=== PATIENT | male | born 1985 | race Caucasian/White ===

== ENCOUNTER 2021-08-07 12:43 | Observation (INO) | payer BC, SELFPAY ==
[2021-08-07] VITALS (23 sets, daily range): BP systolic 117–168; BP diastolic 70–117; PULSE 68–110; RESP 10–17; TEMP 35.9–36.8; O2SAT 92–99; BMI 25.9; BMI 26.4
[2021-08-07] MEDS: Lactated Ringers 1,000 ML 100 ML IV (06:46)
[2021-08-07 07:34] LABS: Hematocrit 46.8 % (40-54); Hemoglobin 16.2 g/dL (13.0-16.5); Mean Corp Hgb Conc 34.6 g/dL (32-36); Mean Corpuscular Volume 83.7 fL (80-94); Mean Platelet Vol. 9.6 fl (6.2-12.0); Platelet Count 188 K/mm3 (150-450); RBC Distribution Width CV 12.5 % (11.6-14.6); RBC Distribution Width SD 38.5 fl (35.1-43.9); Red Blood Count 5.59 M/mm3 (4.6-6.2); White Blood Count 8.4 K/mm3 (4.4-11.0)
[2021-08-07] MEDS: Lactated Ringers 1,000 ML 15 ML IV (08:55)
[2021-08-07] MEDS: Lidocaine 1%/Epi 1:200 (30ml) 30 ML AMPUL (09:50)
[2021-08-07] MEDS: Bupivacaine Mpf 0.5% 30 ML VIAL (09:50)
[2021-08-07] MEDS: MethylPREDNISolone 125 MG/2 ML Vial IV ×3 (14:31→23:47)
[2021-08-07] MEDS: Ketorolac 30 MG/ML Syringe IV ×2 (14:35→20:42)
[2021-08-07] MEDS: Dextrose 5%-Lactated Ringers 1,000 ML 100 ML IV (16:32)
[2021-08-07] MEDS: Morphine 2 MG/ML Syringe IV (21:41)
[2021-08-08] VITALS (8 sets, daily range): BP systolic 102–122; BP diastolic 62–86; PULSE 72–114; RESP 12–16; TEMP 36.4–37.1; O2SAT 93–96
[2021-08-08] MEDS: Ketorolac 30 MG/ML Syringe IV (02:44)
[2021-08-08] MEDS: Dextrose 5%-Lactated Ringers 1,000 ML 100 ML IV (02:44)
[2021-08-08] MEDS: Morphine 2 MG/ML Syringe IV ×2 (03:42→07:21)
[2021-08-08] MEDS: MethylPREDNISolone Acetate 80 MG/ML Vial IM (06:15)
[2021-08-08] MEDS: MethylPREDNISolone 125 MG/2 ML Vial IV (06:17)
--- NOTE | 2021-08-08 07:40 | PCM.PN.BLA ---
Progress Note Patient seen resting well and minimal pain. Swelling is normal post op day 1. Incisions are intact without any active bleeding. Neurosensory function is intact. All motor nerves of face intact. Discharge planned for this afternoon. Will push more oral intake and pain medications.
[2021-08-08] MEDS: HYDROcodone Bitartrate/Apap 5/325 Tablet PO (11:21)
--- NOTE | 2021-08-08 12:05 | PCM.DC ---
Discharge Instructions Diet Discharge Diet: Light diet - advance as tolerated Activity Discharge Activity: May Drive, May Shower and May Take a Tub Bath Return to work on:: 08/29/21 May shower in (days): 1 Weight Bearing Status: Partial weight bearing Dressing / Incision Call your doctor if your incision/area has: Continuous Slow Oozing, Sudden Increased Bleeding, Increased Pain/ Swelling, Increased Redness, Foul Smelling Discharge and Swelling at the incision site Call your doctor if you observe: Fever of 101 or Higher Suture Line Care: Avoid Pulling/Pushing Follow Up Care Test Results: Test results from this visit will be discussed in further detail at your follow-up appointment, if applicable. Discharge Plan Admission Admit Date/Time: 08/07/21 12:43 Attending Provider: Apollo Hernandez Primary Care Provider: Daniel Avilez Instructions Patient Instructions: Jaw Orthognathic Surgery ... Discharge Orders/Prescriptions Prescriptions: Continued lisinopril 10 mg Tablet 10 mg PO DAILY RF: 0 multivitamin Capsule 1 cap PO DAILY RF: 0 Referrals / Follow Up: Daniel Avilez MD [Primary Care Provider] - Apollo Hernandez DDS [STAFF PHYSICIAN] - In 1 Week Disposition Disposition (needs filled in before D/C Order can be placed): Home, Self Care
--- NOTE | 2021-08-08 12:43 | OP.PCM_ITS ---
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 The potential risks and complications of the procedure were discussed at length with the patient and his mother. These included but were not limited to swelling, pain, hemorrhage, infection, nonunion, malunion, need for secondary procedures, neurosensory problems, relapse and continue TMJ symptomatology. The patient understands and wishes to proceed. The patient was placed on the operating room table in the supine position. Appropriate monitors were placed. He was intubated via the naso-endotracheal route without complications. Anesthesia was uneventful. The face and mouth prepped with dilute betadine solution. 10 cc marcaine. .25% infiltrated along the left mandibular ramus region. A mouth prop was inserted into the right side. A throat pack was placed. A soft tissue incision was made with a #15 blade over the external oblique ridge midway uop the anterior border of the ramus of the mandible into the vestibule lateral to the body of the mandible. At this point, a subpeiosteal reflection of the tissue lateral to the ramus was performed to the posterior border and inferior border of the mandible. Also superiorly the dissection was carried into the sigmoid notch. Complete removal of the temporalis tendon was performed to increase visualization of the notch area. A periosteal elevator was used to remove the pterygoid-masseteric sling and as much as possible of the medial pterygoid muscle attachment. Utilizing special ramus retractors, these were inserted to protect the overlying soft tissues. Using the reciprocating saw and the 120 degree blade the philip osteotomy was made from the sigmoid notch superiorly, and carried inferiorly to the mandibular angle. After this was completed the surgical site was packed off and then our attention was directed to the right side where the same procedure was performed. At this time the pre made occlusal splint was wired to the maxi lla and mandible with 26 gauge wire and arch bars were placed as well. The throat pack was removed and throat suctioned. At this time the patient was placed into intermaxillary fixation with 26 gauge wire loops. It was noted that the bilateral proximal segments were passively resting lateral to the distal segments. Copious amounts of normal saline was used to irrigate the surgical sites and were closed with 3-0 chromic sutures in a running fashion. A Lweis head dressing was applied. The patient was extubated without event. The procedure went well with no known complications and the patient was transferred to the PACU breathing spontaneously
--- NOTE | 2021-08-08 13:04 | NURSING ---
Reviewed and agree w/ Latonya Cornelius SN documentation
== END 2021-08-08 13:00 | disposition home or self-care (01) ==
LOC: MS3 14:04 → SDC 14:06 → MS3 14:06 → ICU 08-08 09:17
PROVIDERS: Admitting Provider Dentist Oral and Maxillofacial Surgery; PCP Family Medicine; Referring Provider Dentist Oral and Maxillofacial Surgery; Visit Provider Dentist Oral and Maxillofacial Surgery
PROC: (CPT 21196; principal; 2021-08-07 14:00)
DX: M26.03 Mandibular hyperplasia (principal); I10 Essential (primary) hypertension; K00.0 Anodontia; M26.19 Other specified anomalies of jaw-cranial base relationship; M26.609 Unspecified temporomandibular joint disorder, unspecified side; Z79.899 Other long term (current) drug therapy; Z86.16 Personal history of COVID-19
CPT/HCPCS: 21196; 85027; 96361; 96365; 96366; 96372; 96375; 96376; 99218; J7120; G0378; J2405

== ENCOUNTER 2025-05-17 19:51 | Emergency (ER) | payer BC, SELFPAY ==
[2025-05-17 19:53] VITALS: BP 139/95; PULSE 86; RESP 17; TEMP 36.6; O2SAT 98; BMI 26.4
--- NOTE | 2025-05-17 20:00 | EKG12_ITS ---
Test Reason : DYSRHYTHMIA Blood Pressure : */* mmHG Vent. Rate : 86 BPM Atrial Rate : 86 BPM P-R Int : 168 ms QRS Dur : 92 ms QT Int : 368 ms P-R-T Axes : 58 63 34 degrees QTcB Int : 440 ms Normal sinus rhythm Normal ECG Confirmed by Shar Ferris ([id number]), social media editor YUKO GALE ([id number]) on 05/18/2025 11:47:00 AM Referred By: Confirmed By: Shar Ferris
[2025-05-17] MEDS: 0.9% Normal Saline (1000mL) 1,000 ML 1000 ML IV (20:20)
--- OUTSIDE RECORDS SUMMARY | 2025-05-17 20:32 | XMS RPT_ITS | CCD ---
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 serum creatinine, sex, and age as parameters. The creatinine assay has traceable calibration to isotope dilution-mass spectrometry. Refer to KDIGO guidelines for clinical interpretation. In patients with unstable renal function, e.g. those with acute kidney injury, the eGFR may not accurately reflect actual GFR. Performed By: #### L ALFONSO, 32267-0 #### [facility] CLIA [id number] [address] [place] [address] [place] Glucose [Mass/Vol] 90 mg/dL Normal 74-99 [facility] Comment on above: Order Comment: Speci men Type: BLOOD SPECIMEN Ordering Facility: [facility] Address: [address] [place] [address] Result Comment: The [place] Diabetes Association (ADA) provides guidance for cutoff values for fasting glucose and random glucose. The ADA defines fasting as no caloric intake for at least 8 hours. Fasting plasma glucose results between 100 to 125 mg/dL indicate increased risk for diabetes (prediabetes). Fasting plasma glucose results greater than or equal to 126 mg/dL meet the criteria for diagnosis of diabetes. In the absence of unequivocal hyperglycemia, results should be confirmed by repeat testing. In a patient with classic symptoms of hyperglycemia or hyperglycemic crisis, random plasma glucose results greater than or equal to 200 mg/dL meet the criteria for diagnosis of diabetes. Reference: Standards of Medical Care in Diabetes 2016, [place] Diabetes Association. Diabetes Care. 2016.39(Suppl 1). Performed By: #### L IPVANGIE, 24748-3 #### [facility] CLIA [id number] [address] [place] [address] [place] Potassium [Moles/Vol] 4.4 mmol/L Normal 3.7-5.1 [facility] Comment on above: Order Comment: Speci men Type: BLOOD SPECIMEN Ordering Facility: [facility] Address: [address] [place] [address] Performed By: #### L IPVANGIE, 05110-7 #### [facility] CLIA [id number] [address] [place] [address] [place] Protein [Mass/Vol] 7.5 g/dL Normal 6.3-8.0 [facility] Comment on above: Order Comment: Master gallego Type: BLOOD SPECIMEN Ordering Facility: [facility] Address: [address] [place] [address] Performed By: #### L IPNF, 48196-9 #### [facility] CLIA [id number] [address] [place] [address] [place] Sodium [Moles/Vol] 138 mmol/L Normal 136-144 [facility] Comment on above: Order Comment: Eloisai men Type: BLOOD SPECIMEN Ordering Facility: [facility] Address: [address] [place] [address] Performed By: #### L IPNF, 60864-7 #### [facility] CLIA [id number] [address] [place] [id number] [place] Urea nitrogen [Mass/Vol] 20 mg/dL Normal 9-24 [facility] Comment on above: Order Comment: Master gallego Type: BLOOD SPECIMEN Ordering Facility: [facility] Address: [address] [place] [address] Performed By: #### L IPNF, 10404-1 #### [facility] CLIA [id number] [address] [place] [address] [place] HbA1c (Bld)on 02-04-2025 Average glucose Estimated from glycated hemoglobin (Bld) [Mass/Vol] 105 mg/dL Normal [facility] Comment on above: Order Comment: Master gallego Type: BLOOD SPECIMEN Ordering Facility: [facility] Address: [address] [place] [address] Result Comment: eAG: (Estimated average glucose) is a calculated value from HgbA1c and is automotive leasing sales representative of the average blood glucose level in the last 2-3 month period. Performed By: #### 5 5454-3 #### [facility] CLIA [id number] [address] [place] [address] [place] HbA1c (Bld) [Mass fraction] 5.3 % Normal 4.3-5.6 [facility] Comment on above: Order Comment: Master gallego Type: BLOOD SPECIMEN Ordering Facility: [facility] Address: [address] [place] [address] Result Comment: [place] Diabetes Association guidelines indicate that patients with HgbA1c in the range 5.7-6.4% are at increased risk for development of diabetes, and intervention by lifestyle modification may be beneficial. HgbA1c greater or equal to 6.5% is considered diagnostic of diabetes. Performed By: #### 5 5454-3 #### [facility] CLIA [id number] [address] [place] [address] [place] LIPID PANEL, NONFASTINGon Cholesterol [Mass/Vol] 192 mg/dL Normal <200 [facility] Comment on above: Order Comment: Speci men Type: BLOOD SPECIMEN Ordering Facility: [facility] Address: [address] [place] [address] Result Comment: <200 mg/dL, Desirable 200-239 mg/dL, Borderline high >239 mg/dL, High Performed By: #### L IPNF, 36532-1 #### [facility] CLIA [id number] [address] [place] [address] [place] HDL CHOLESTEROL, NF 40 mg/dL Normal >39 [facility] Comment on above: Order Comment: Speci men Type: BLOOD SPECIMEN Ordering Facility: [facility] Address: [address] [place] [address] Result Comment: 40-5 9 mg/dL, Acceptable >59 mg/dL, High: Negative risk factor for coronary heart disease <40 mg/dL, Low: Positive risk factor for coronary heart disease Performed By: #### L IPNF, #### [facility] CLIA [id number] [address] [place] [address] [place] LDL CHOLESTEROL CALCULATED, NF 113 mg/dL High <100 [facility] Comment on above: Order Comment: Eloisai men Type: BLOOD SPECIMEN Ordering Facility: [facility] Address: [address] [place] [address] Result Comment: <100 mg/dL, Optimal 100-129 mg/dL, Near optimal/above optimal 130-159 mg/dL, Borderline high 160-189 mg/dL, High >189 mg/dL, Very high Secondary prevention optimal LDL Cholesterol levels are recommended to be <70 mg/dL LDL cholesterol is calculated using the Sorto-NIH equation. Performed By: #### L IPNF, 46802-1 #### [facility] CLIA [id number] [address] [place] [address] [place] LDL/HDL RATIO, NF 2.83 mg/dL High <2.54 [facility] Comment on above: Order Comment: Speci men Type: BLOOD SPECIMEN Ordering Facility: [facility] Address: [address] [place] [address] Result Comment: Refe rence: 1. National Cholesterol Education Program ATP III Guideline At-A-Glance Quick Desk Reference: National Heart, Lung, and Blood Howard. National Institutes of Health. 2001: NIH Publication No. 01-3305. 2. An International Atherosclerosis Society position paper: global recommendations for the management of dyslipidemia: executive summary, Atherosclerosis. 2014: 232(2):410-413. Performed By: #### L IPNF, 42420-7 #### [facility] CLIA [id number] [address] [place] [address] [place] NON HDL CHOL, NF 152 mg/dL High <130 [facility] Comment on above: Order Comment: Master gallego Type: BLOOD SPECIMEN Ordering Facility: [facility] Address: [address] [place] [address] Result Comment: <130 mg/dL, Optimal 130-159 mg/dL, Near optimal/above optimal 160-189 mg/dL, Borderline high 190-219 mg/dL, High >219 mg/dL, Very high Secondary prevention optimal non HDL Cholesterol levels are recommended to be <100 mg/dL Performed By: #### L IPNF, 99150-0 #### [facility] CLIA [id number] [address] [place] [address] [place] T CHOL/HDL RATIO NF 4.80 mg/dL Normal <5.10 [facility] Comment on above: Order Comment: Master gallego Type: BLOOD SPECIMEN Ordering Facility: [facility] Address: [address] [place] [address] Performed By: #### L IPNF, 06073-1 #### [facility] CLIA [id number] [address] [place] [address] [place] TRIGLYCERIDES, NF 223 mg/dL High <150 [facility] Comment on above: Order Comment: Master gallego Type: BLOOD SPECIMEN Ordering Facility: [facility] Address: [address] [place] [address] Result Comment: <150 mg/dL, Normal 150-199 mg/dL, Borderline high 200-499 mg/dL, High >499 mg/dL, Very high Performed By: #### L IPNF, 37951-6 #### [facility] CLIA [id number] [address] [place] [address] STATES [place] [facility] VLDL CHOLESTEROL, NF 38 mg/dL High <30 [facility] Comment on above: Order Comment: Speci men Type: BLOOD SPECIMEN Ordering Facility: [facility] Address: [address] [place] [address] Performed By: #### L IPNF, 46833-8 #### [facility] CLIA [id number] [address] [place] [address] OF [facility] XR LUMBAR PARS 4V AP/LAT/OBL X2on 02-04-2025 XR LUMBAR PARS 4V AP/LAT/OBL X2 * * *Final Report* * * DATE OF EXAM: Feb 04 2025 12:36PM WOX [id number] - XR LUMBAR PARS 4V AP/LAT/OBL X2 / PROCEDURE REASON: Acute midline low back pain without sciatica * * * * Physician Interpretation * * * * EXAM TITLE: XR LUMBAR PARS 4V AP/LAT/OBL X2 EXAM DATE/TIME: 02/04/2025 12:36 PM COMPARISON: None. CLINICAL INDICATION/HISTORY: Low back pain. TECHNIQUE: AP, lateral , oblique and cone down lateral views of the lumbar spine are presented. FINDINGS: There are five [id number] lumbar vertebrae. No fracture or subluxations are noted. The disc spaces are well preserved. There is no significant osteophyte formation. IMPRESSION: Negative lumbar spine X-ray. Block Hacker: PSCB Transcribe Date/Time: Feb 05 2025 12:01P Dictated by : TERRANCE DANG MD This examination was interpreted and the report reviewed and electronically signed by: TERRANCE DANG MD on Feb 05 2025 12:02PM EST [id number] Normal [facility] ED NOTEon 01-11-2022 ED NOTE HNO ID: [id number] Author: Jatinder Kingston RN Service: ? Author Type: Registered Nurse Type: ED Notes Filed: 01/11/2022 4:30 PM Note Text: Pt reports being next to a high pressure hot hydraulic line that burst throwing hot fluid all over his head, neck, face and L arm. [facility] ED PROV NOTEon 01-11-2022 ED PROV NOTE HNO ID: [id number] Author: Mitchell Quigley MD Service: ? Author Type: Physician Type: ED Provider Notes Filed: 01/11/2022 7:45 PM Note Text: ED Provider Note Patient Name: Severino Resendiz : 1985 SERVICE DATE: 01/11/22 History Patient presents with: Minor This is a 36-year-old male, previously healthy presents with minor sustained at work. These were substernal around 3 PM. He was working with a piece of heavy machinery, involving hydraulic fluid when a hydraulic fluid line burst and squirted hot hydraulic fluid onto his left arm, left neck left face and left ear. He is unsure of his last tetanus shot. Denies any numbness, tingling, weakness, difficulty breathing or swallowing. Thinks that he did get a little bit in his mouth but spit it out does not taste anymore. Denies getting any in his eye. Reports that he was wearing sunglasses at the time. PAST MEDICAL HISTORY Diagnosis Date - Hypertension - PMH - PAST MEDICAL HISTORY OF 01/02/93 NORMAL COLOR VISION - PSVT (paroxysmal supraventricular tachycardia) (HCC) began in 2004 PAST SURGICAL HISTORY Procedure Laterality Date - JOINT REPLACEMENT HX - PAST SURGICAL HISTORY OF right MCL reconstruction - TONSILLECTOMY HX 2012 FAMILY HISTORY Problem Relation Age of Onset - Hypertension Mother 55 - Hyperlipidemia Mother - other (Cirrhosis) Mother - other (sleep apnea) Father Type II - Cancer Maternal Grandmother (may of been Lung) - Hypertension Paternal Grandmother - Diabetes Paternal Grandmother - other (cirrhosis) Paternal Grandmother - Asthma Maternal Grandfather - Emphysema Maternal Grandfather - Stroke Paternal Uncle - Alzheimer's Disease No Family History - Colon Cancer No Family History - Prostate Cancer No Family History - Breast Cancer No Family History - Ovarian cancer No Family History - Coronary Artery Disease No Family History - Kidney Disease No Family History - Seizures No Family History - Thyroid No Family History Social History Tobacco Use - Smoking status: Never Smoker - Smokeless tobacco: Never Used Vaping Use - Vaping Use: Never used Substance and Sexual Activity - Alcohol use: Yes - Drug use: No - Sexual activity: Not on file ALLERGIES No Known Allergies Review of Systems All other systems reviewed and are negative. Physical Exam Vitals [01/11/22 1527] BP Pulse Temp Temp src Resp SpO2 Weight Height (!) 191/129 (!) 120 36.9 ?C (98.4 ?F) Oral 20 100 % 99.8 kg (220 lb) 1.93 m (6' 4) Physical Exam Vitals and nursing note reviewed. Constitutional: Appearance: Normal appearance. He is not ill-appearing or diaphoretic. HENT: Head: Normocephalic. Right Ear: External ear normal. Ears: Comments: Left external ear has a burn to almost its entire external surface, is red, blistered, slightly swollen, does have some yellow fluid on it still, unclear this is from the burn from the hydraulic fluid. Nose: Nose normal. Mouth/Throat: Mouth: Mucous membranes are moist. Pharynx: Oropharynx is clear. Eyes: General: No scleral icterus. Right eye: No discharge. Left eye: No discharge. Extraocular Movements: Extraocular movements intact. Conjunctiva/sclera: Conjunctivae normal. Pupils: Pupils are equal, round, and reactive to light. Neck: Comments: There is minor to the anterior neck, left lateral neck Cardiovascular: Rate and Rhythm: Normal rate and regular rhythm. Pulses: Normal pulses. Pulmonary: Effort: Pulmonary effort is normal. No respiratory distress. Breath sounds: Normal breath sounds. No stridor. No wheezing or rhonchi. Abdominal: Palpations: Abdomen is soft. Tenderness: There is no abdominal tenderness. Musculoskeletal: Arms: Cervical back: Neck supple. Skin: General: Skin is warm and dry. Neurological: Mental Status: He is alert. Diagnostic Testing ED Labs Ordered and Reviewed - No data to display Procedures ED Course / Clinical Impression ED Course as of 01/11/221944 Mitchell Quigley's Documentation [facility] Jan 11, 20221817 Reviewed case with poison control, they will investigate whether there is any toxicologic implications. I do recommend decontamination to the patient. Which I also recommend to the patient. He again stressed that he wants to take a shower at home. 1845 Spoke with poison control, recommend decontamination, no further acute recommendations. Recommend mild soap and water decontamination, patient still states he wants to shower at home and not here in the hospital. 1847 Also recommend transfer of patient to burn center for further evaluation and treatment of chemical/thermal burn, continues to refuse this. 190 Spoke with Quiana from burn center. They will try to follow-up with an outpatient with the patient. They do note that if he wants to file this under Worker's Comp. he does need to be seen within a certain timeframe, possibly 24 hours. I wo (more content not included)... Normal [facility] Office Visit (Urology)on Follow-up visit Diagnoses/Problems Assessed Left varicocele (456.4) (I86.1) Testosterone deficiency (259.9) (E34.9) Patient Discussion/Summary # fertility concerns, Has a palpable left varicocele SA is WNL, would not intervene at this time #low testosterone no major symptoms , would not treat now given fertility If pt has decreased energy.libido after done having kids will reach out again and consider recheck fu prn Chief Complaint An interactive audio and video telecommunication system which permits real time communications between the patient (at the originating site) and provider (at the distant site) was utilized to provide this telehealth service. Verbal consent was requested and obtained from SEVERINO RESENDIZ on this date, 09/11/2021 03:50 PM , for a telehealth visit. varicocele History of Present [id number] year old male here for infertility Partner/ name: Anabel Resendiz Partner/ age: 34 for: 7 years Attempting for : 7 years Previous pregnancies for either partner: 1- about 8 years ago- miscarriage in first trimester - [facility] in [facility] Previous Semen analysis: SA 08/18/21 reviewed; total count 226 / tmc 154 / morph 7% Scrotal US 08/21/21 reviewed: left varicocele Labs from [facility]: FSH 3, LH 6; prl, E wnl, T 278 PREVIOUS RISK FACTORS History of testicular exposure to chemicals, radiation, or toxins: worked at [employer]- with electromagnetic field- 7 years ago History of high fever, epididymitis, orchitis, prostatitis, sexually transmitted diseases, or trauma to the testicles: None History of a varicocele, testicular torsion, cryptorchidism, postpubertile mumps or a family history of infertility: None Coital Frequency: 4-5 times a months Coital Lubricants: None Problems with erections or ejaculation: None Smoker? no Previous Testosterone or anabolic steroid Use: none PRIOR Assisted Reproductive Technology: IVF/ IUI None Active Problems Problems Left varicocele (456.4) (I86.1) Left varicocele (456.4) (I86.1) Allergies NoKnown No Known Allergies Recorded By: Jean Espinoza; 08/14/2021 1:18:26 PM Current Meds Medication NameInstruction Amoxicillin 500 MG Oral Tablettake 1 tablet by mouth three times a day Chlorhexidine Gluconate 0.12 % Mouth/Throat SolutionRINSE MOUTH WITH 15 MLS for 30 SECONDS every morning and evening ... (REFER TO PRESCRIPTION NOTES). Lisinopril 10 MG Oral Tablettake 1 tablet by mouth once daily Mucinex D Max Strength 120-1200 MG Oral Tablet Extended Release 12 Hourtake 1 tablet by mouth once daily if needed Physical Exam CONSTITUTIONAL: No acute distress HEAD: Normocephalic and atraumatic CHEST / RESPIRATORY no excess work of breathing, no respiratory distress, ABDOMEN / GASTROINTESTINAL: Abdomen nondistended PSYCH: Alert and cooperative; Signatures Electronically signed by : Uziel Ventura MD; Sep 11 2021 3:34PM EST (Author) Normal [facility] 08-21-2021 US.doppler Scrotum and testicle Normal [id number] Work Phone: US SCROTUM WITH DOPPLERSon 0 08-21-2021 US SCROTUM WITH DOPPLERS Patient Name: SEVERINO RESENDIZ STUDY: US SCROTUM WITH DOPPLERS; 08/21/2021 4:37 pm INDICATION: Left varicocele I86.1: Left varicocele. COMPARISON: None. ACCESSION NUMBER(S): [id number] ORDERING CLINICIAN: UZIEL VENTURA TECHNIQUE: Grayscale, color and spectral Doppler ultrasound of the scrotum. FINDINGS: RIGHT HEMISCROTUM: Right Testicle: 5.6 x 2.2 x 3.9 cm Normal echogenicity, no focal abnormalities. Normal arterial and venous spectral Doppler waveforms. Right Epididymis: Cyst right epididymal head measures 5 mm. No other right epididymal abnormality. Trace hydrocele. No varicocele. LEFT HEMISCROTUM: Left Testicle: 5.4 x 2.5 x 3.9 cm Normal echogenicity, no focal abnormalities. Normal arterial and venous spectral Doppler waveforms. Left Epididymis: Within normal limits. Trace hydrocele. Small varicocele. IMPRESSION: Small unilateral left-sided varicocele. No acute scrotal pathology is demonstrated. Electronically signed by: JOSE DANIEL CASTRO MD Normal [facility] Office Visit (Urology)on Follow-up visit Diagnoses/Problems Assessed Left varicocele (456.4) (I86.1) Patient Discussion/Summary I counseled the patient in detail regarding infertility, specifically the male component. We reviewed different causes of male infertility as well as options to optimize male fertility, from lifestyle modifications like diet, exercise, and quitting smoking, to different surgical interventions and assisted reproductive technologies. Has a palpable left varicocele - Semen analysis with strict morphology x 2 - Labs : LH, FSH, Prolactin, testosterone, free testosterone, estradiol - I have scheduled a scrotal ultrasound to better evaluate the testicles, epididymis, and spermatic cords. Chief Complaint fertiltiy History of Present [id number] year old male here for infertility Partner/ name: Anabel Resendiz Partner/ age: 34 for: 7 years Attempting for : 7 years Previous pregnancies for either partner: 1- about 8 years ago- miscarriage in first trimester - [facility] in [facility] Previous Semen analysis: never PREVIOUS RISK FACTORS History of testicular exposure to chemicals, radiation, or toxins: worked at [employer]- with electromagnetic field- 7 years ago History of high fever, epididymitis, orchitis, prostatitis, sexually transmitted diseases, or trauma to the testicles: None History of a varicocele, testicular torsion, cryptorchidism, postpubertile mumps or a family history of infertility: None Coital Frequency: 4-5 times a months Coital Lubricants: None Problems with erections or ejaculation: None Smoker? no Previous Testosterone or anabolic steroid Use: none PRIOR Assisted Reproductive Technology: IVF/ IUI None Allergies NoKnown No Known Allergies Recorded By: Jean Espinoza; 08/14/2021 1:18:26 PM Current Meds Medication NameInstruction Amoxicillin 500 MG Oral Tablettake 1 tablet by mouth three times a day Chlorhexidine Gluconate 0.12 % Mouth/Throat SolutionRINSE MOUTH WITH 15 MLS for 30 SECONDS every morning and evening ... (REFER TO PRESCRIPTION NOTES). Lisinopril 10 MG Oral Tablettake 1 tablet by mouth once daily Mucinex D Max Strength 120-1200 MG Oral Tablet Extended Release 12 Hourtake 1 tablet by mouth once daily if needed Vitals Vital Signs Recorded: [id number] 01:19PM Heart Rate87 [id number] Vashdfole33 Height6 ft 5 in Kzpogg071 lb BMI Qqovlezvsy42.9 kg/m2 BSA Calculated2.28 Tobacco Useb) No Fall Screeninga) No falls within the last year Physical Exam CONSTITUTIONAL: Well developed, well nourished, in no acute distress HEAD: Normocephalic and atraumatic CHEST / RESPIRATORY No excess work of breathing, no respiratory distress, no gynecomastia CV Regular rate ABDOMEN / GASTROINTESTINAL: Abdomen soft and non-tender without masses GENITOURINARY / GENITALIA: Testicles descended bilaterally, testicular size 25 cc bilaterally, soft, nontender to palpation Varicocele: grade 2 left palpable Hydrocele: none palpable Vas deferens and epididymis palpable bilaterally Penis: normal uncircumcised phallus without lesions, meatus in normal anatomic location PSYCH: Alert and cooperative; normal mood and affect; Signatures Electronically signed by : Uziel Ventura MD; Aug 14 2021 1:46PM EST (Author) Normal [employer] Tobacco Screening.on 022 Fall risk assessment a) No falls within the last year UJ-Cydvbfa-Tqde r Reeders Work Phone: Tobacco use status [facility] b) No GG-Tmpzqjm-Fdrf r Reeders Work Phone: Discharge Instructionon 02-0 Discharge Instruction [facility] Medical Records Department [address] [place] [address] Instructions for Home/Discharge Instructions 08/08/21 1205 MR#: [id number] Acct: [id number] Name: SEVERINO RESENDIZ Rep #: [id number] : 1985 36 From: Apollo Hernandez DDS PCP: Dr. Daniel Douglas MD Status:ADM AKASH Discharge Instructions Diet Discharge Diet: Light diet - advance as tolerated Activity Discharge Activity: May Drive, May Shower and May Take a Tub Bath Return to work on:: 08/29/21 May shower in (days): 1 Weight Bearing Status: Partial weight bearing Dressing / Incision Call your doctor if your incision/area has: Continuous Slow Oozing, Sudden Increased Bleeding, Increased Pain/ Swelling, Increased Redness, Foul Smelling Discharge and Swelling at the incision site Call your doctor if you observe: Fever of 101 or Higher Suture Line Care: Avoid Pulling/Pushing Follow Up Care Test Results: Test results from this visit will be discussed in further detail at your follow-up appointment, if applicable. Discharge Plan Admission Admit Date/Time: 08/07/21 12:43 Attending Provider: Apollo Hernandez Primary Care Provider: Daniel Douglas Instructions Patient Instructions: Jaw Orthognathic Surgery ... Discharge Orders/Prescriptions Prescriptions: Continued lisinopril 10 mg Tablet 10 mg PO DAILY RF: 0 multivitamin Capsule 1 cap PO DAILY RF: 0 Referrals / Follow Up: Daniel Douglas MD [Primary Care Provider] - Apollo Hernandez DDS [STAFF PHYSICIAN] - In 1 Week Disposition Disposition (needs filled in before D/C Order can be placed): Home, Self Care 08/08/21 1212 Apollo Hernandez DDS CC: Dr. Daniel Douglas MD Signed Normal [facility] Operative Reporton [address] [facility] Medical Records Department [address] [place] [address] Operative Report 08/08/21 1243 MR#: [id number] Acct: [id number] Name: SEVERINO RESENDIZ Rep #: [id number] : 1985 36 From: Apollo Hernandez DDS PCP: Dr. 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 The potential risks and complications of the procedure were discussed at length with the patient and his mother. These included but were not limited to swelling, pain, hemorrhage, infection, nonunion, malunion, need for secondary procedures, neurosensory problems, relapse and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 of 2 - MenB 2-Dose Series) MenB (1 of 2 - MenB 2-Dose Series) [facility] Start: 1994 Tetanus Diphtheria a nd Pertussis Vaccines (1 - Tdap) Tetanus Diphtheria and Pertussis Vaccines (1 - Tdap) [facility] Start: 1992 COVID-19 (#1) COVID-19 (#1) [facility] Start: 1988 MMR (1 of 1 - Standa rd series) MMR (1 of 1 - Standard series) [facility] Start: 1988 Varicella (1 of 2 - 2-dose childhood series) Varicella (1 of 2 - 2-dose childhood series) [facility] Start: 1987 COVID-19 (#1) COVID-19 (#1) [facility] CBC W Auto Different ial panel - Blood CBC + DIFF Lab Routine Medication management 07/16/2022 9:44 AM EST [facility] Work Phone: ECG COMPLETE ECG COMPLETE ECG Routine PSVT (paroxysmal supraventricular tachycardia) (HCC) 11/02/2022 7:51 AM EDT [facility] Work Phone: OUTSIDE VENDOR CARDI AC OUTPATIENT EXTENDED RHYTHM RECORDING (WITHOUT TELEMETRY) OUTSIDE VENDOR CARDIAC OUTPATIENT EXTENDED RHYTHM RECORDING (WITHOUT TELEMETRY) Holter Routine Palpitations Ordered: 07/16/2022 [facility] Work Phone: Comment on above: Ordered: 07/16/2022 End: 03-06-2026 XR Lumbar spine AP and Lateral and oblique XR LUMBAR PARS DEFECT 4V AP/LAT/BOTH OBL Radiology Routine Acute midline low back pain without sciatica 1 Occurrences starting 02/04/2025 until 03/06/2026 [facility] Work Phone: Comment on above: 1 Occurrences starti ng 02/04/2025 until 03/06/2026 XR Lumbar spine AP a nd Lateral and oblique XR LUMBAR PARS DEFECT 4V AP/LAT/BOTH OBL Radiology Routine Acute midline low back pain without sciatica 02/04/2025 12:36 PM EDT [facility] Immunizations Immunization Date Immunization Notes Care Provider [facility] 01-11-2022 tetanus toxoid, redu iftikhar diphtheria toxoid, and acellular pertussis vaccine, adsorbed Brianna Sheriff PA-C Work Phone: [facility] 07-14-2021 tetanus toxoid, redu iftikhar diphtheria toxoid, and acellular pertussis vaccine, adsorbed Referring Provider Unknown [facility] 01-21-2004 TD(adult) unspecifie d formulation Referring Provider Unknown [facility]Gspdyev-Tpkdg Trang Work Phone: 01-21-2004 tetanus and diphther ia toxoids, adsorbed, preservative free, for adult use (2 Lf of tetanus toxoid and 2 Lf of diphtheria toxoid) Brianna Sheriff PA-C Work Phone: [facility] 12-13-2000 hepatitis B vaccine, pediatric or pediatric/adolescent dosage Referring Provider Unknown [facility] 07-17-2000 hepatitis B vaccine, pediatric or pediatric/adolescent dosage Referring Provider Unknown [facility] 06-14-2000 hepatitis B vaccine, pediatric or pediatric/adolescent dosage Referring Provider Unknown [facility] 02-02-2000 measles, mumps and rubella virus vaccine Referring Provider Unknown [facility] 01-02-1993 tuberculin skin test ; purified protein derivative solution, intradermal Surya Tatum APRN.STOCK WORKER Work Phone: [facility] 10-20-1992 diphtheria, tetanus toxoids and acellular pertussis vaccine Brianna Sheriff PA-C Work Phone: [facility] 10-20-1992 diphtheria, tetanus toxoids and acellular pertussis vaccine, unspecified formulation Referring Provider Unknown [facility] Work Phone: 10-20-1992 trivalent poliovirus vaccine, live, oral Referring Provider Unknown [facility] 12-28-1988 haemophilus influenz ae type b vaccine, conjugate unspecified formulation Referring Provider Unknown LF-Cmkqtwb-Yutpf [facility] Work Phone: 12-28-1988 haemophilus influenz ae type b vaccine, PRP-D conjugate Brianna Sheriff PA-C Work Phone: [facility] 09-14-1988 diphtheria, tetanus toxoids and pertussis vaccine Referring Provider Unknown [facility] 09-14-1988 measles, mumps and rubella virus vaccine Referring Provider Unknown [facility] 09-14-1988 trivalent poliovirus vaccine, live, oral Referring Provider Unknown [facility] 05-10-1988 tuberculin skin test ; purified protein derivative solution, intradermal Surya Tatum SMALL OFFSET PRINTER.STOCK WORKER Work Phone: [facility] 01-27-1988 diphtheria, tetanus toxoids and pertussis vaccine Referring Provider Unknown [facility] 1987 diphtheria, tetanus toxoids and pertussis vaccine Referring Provider Unknown [facility] 1987 trivalent poliovirus vaccine, live, oral Referring Provider Unknown [facility] 1987 diphtheria, tetanus toxoids and pertussis vaccine Referring Provider Unknown [facility] 1987 trivalent poliovirus vaccine, live, oral Referring Provider Unknown [facility] Payers Date Payer Category Payer Unknown [id number] 2022 Government (not [facility] care or Medicaid) [facility] [id number] 2022 Worker's Compensation [employer] [id number] 2022-Present [id number] 2015 Blue [employer] Blue Shield [id number] 15 2015 Unknown 2015 Unknown [employer] PPO [id number] 2015-Present [phone] [address] [place] [address] PPO [id number] 1987 Unknown [id number] Social History Date Type Detail Facility Start: 01-15-2022 End: 06-09-2022 Tobacco smoking status NHIS Never smoked tobacco [facility] Start: 07-14-2021 Alcohol intake Current non-dr title searcher of alcohol (finding) [facility] Start: 1985 Sex Assigned At Not on file [facility] Start: 01-15-2022 End: 07-18-2023 Cigarette pack-years [facility] Start: 01-15-2022 End: 06-09-2022 Tobacco use and exposure Smokeless tobacco non-user [facility] Start: 01-15-2022 End: 11-02-2022 Alcohol intake Current drinker of alcohol (finding) [facility] Start: 01-15-2022 History SDOH Alcohol Comment socially [facility] Start: 01-05-2022 End: 01-22-2022 Exposure to SARS-CoV-2 (event) Not sure [facility] Start: 07-09-2022 History SDOH Alcohol Frequency 4 [facility] Start: 07-09-2022 History SDOH Alcohol Std Drinks 2 [facility] Start: 07-09-2022 History SDOH Social Connections Phone 5 [facility] Start: 07-09-2022 History SDOH Social Connections Membership 1 [facility] Start: 07-09-2022 History SDOH Physica l Activity DPW 3 [facility] Start: 11-02-2022 Alcohol Comment 2-3 beers a day [facility] Start: 07-09-2022 End: 07-18-2023 Social connection and isolation panel [facility] Do you belong to any clubs or organizations such as orthodox groups, unions, fraternal or athletic groups, or school groups? Yes [facility] Are you now , , , , never or living with a partner? [facility] How often to you hav e a drink containing alcohol? 2-3 time sa week [facility] How many standard dr inks containing alcohol do you have on a typical day? 3 or 4 [facility] How often do you hav e 6 or more drinks on 1 occasion? Weekly [facility] How hard is it for y ou to pay for the very basics like food, housing, medical care, and heating Not hard at all [facility] Do you feel stress - tense, restless, nervous, or anxious, or unable to sleep at night because your mind is troubled all the time - these days [OSQ] Not at all [facility] (I/We) worried emma er (my/our) food would run out before (I/we) got money to buy more. Never true [facility] In the past 12 month s, was there a time when you were not able to pay the mortgage or rent on time? No [facility] Start: 07-19-2023 End: 11-18-2023 Alcohol intake Ex-drinker (finding) [facility] Functional Status Date Assessment Result Facility 07-20-2023 Are you deaf, or do you have serious difficulty hearing No 07/20/2023 10:17 AM Marie Garcias RN No [facility] 07-20-2023 Are you blind, or do you have serious difficulty seeing, even when wearing glasses No 07/20/2023 10:17 AM Marie Garcias RN No [facility] 07-20-2023 Do you have serious difficulty walking or climbing stairs No 07/20/2023 10:17 AM Marie Gacrias, VITALIY No [facility] 07-20-2023 Do you have difficul ty dressing or bathing No 07/20/2023 10:17 AM Marie Garcias, VITALIY No [facility] 07-20-2023 Because of a physica l, mental, or emotional condition, do you have difficulty doing errands alone such as visiting a physician's office or shopping No 07/20/2023 10:17 AM Marie Garcias, VITALIY No [facility] Mental Status Date Assessment Result Facility 07-20-2023 Because of a physica l, mental, or emotional condition, do you have serious difficulty concentrating, remembering, or making decisions No 07/20/2023 10:17 AM Marie Garcias, VITALIY No [facility] Clinical Notes 08-14-2013 to 02-05-2025 Telephone Encounter - Nikki Browne MA - 02/05/2025 1:01 PM EDTTelephone Encounter - Nikki Browne MA - 02/05/2025 1:01 PM Cuco Solomon RT(R) - 02/04/2025 12:30 PM EDT Note Date & Type Note Facility 02-05-2025 Telephone encounter Note Mychart sent to patient Nikki Browne MA [facility] 02-05-2025 Miscellaneous Notes Mychart sent to patient Nikki Browne MA Please let patient know their xray is normal. Likely muscular related, would recommend PT. Pt active on [employer]- message sent. Will leave open until pt views Nikki Browne MA Please let patient know their labs are normal. His cholesterol has improved. Continue medications and lifestyle modifications. documented in this encounter [facility] 02-05-2025 Telephone encounter Note Please let patient know their xray is normal. Likely muscular related, would recommend PT. [facility] 02-05-2025 Telephone encounter Note Pt active on [employer]- message sent. Will leave open until pt views Nikki Browne MA [facility] 02-05-2025 Telephone encounter Note Please let patient know their labs are normal. His cholesterol has improved. Continue medications and lifestyle modifications. [facility] 02-04-2025 History of Presen t illness Narrative Radiology Service Progress Note PATIENT NAME: Severino Resendiz DATE OF SERVICE: February 04, 2025 TIME: 12:25 PM PATIENT IDENTITY VERIFICATION COMPLETED USING TWO (2) IDENTIFIERS: Name and Date of confirmed by patient verbally. FALL SCREENING: Has the patient had 2 falls in the last year or 1 fall with injury or currently using an Ambulatory Assistive Device (Walker, Cane, Wheelchair, Crutches, etc.)? No PATIENT GENDER DATA: Assigned male at PATIENT RELEVANT IMPLANT DATA REVIEWED: Yes PATIENT PRESENTS WITH AN IMPLANTABLE OR ATTACHED FIREBREAK CUTTER: No RADIOLOGY DEPARTMENT: General X-ray: Exam(s) Completed: Spine X-Ray(s): Lumbar AP/LAT obliques PERIPHERAL IV DATA: Not applicable SIGNED BY: RT Esther(Moshe) February 04, 2025 12:25 PM documented in this encounter [facility] 02-04-2025 Note HNO ID: [id number] Author: CUCO REYEZ RT(R) Service: ? Author Type: Business Development Consultant Type: Progress Notes Filed: 02/04/2025 12:35 Note Text: Radiology Service Progress Note PATIENT NAME: Severino Resendiz DATE OF SERVICE: February 04, 2025 TIME: 12:25 PM PATIENT IDENTITY VERIFICATION COMPLETED USING TWO (2) IDENTIFIERS: Name and Date of confirmed by patient verbally. FALL SCREENING: Has the patient had 2 falls in the last year or 1 fall with injury or currently using an Ambulatory Assistive Device (Walker, Cane, Wheelchair, Crutches, etc.)? No PATIENT GENDER DATA: Assigned male at PATIENT RELEVANT IMPLANT DATA REVIEWED: Yes PATIENT PRESENTS WITH AN IMPLANTABLE OR ATTACHED FIREBREAK CUTTER: No RADIOLOGY DEPARTMENT: General X-ray: Exam(s) Completed: Spine X-Ray(s): Lumbar AP/LAT obliques PERIPHERAL IV DATA: Not applicable SIGNED BY: RT Esther(Moshe) February 04, 2025 12:25 PM [facility] 02-04-2025 Instructions Surya Tatum APRN.[facility] - 02/04/2025 12:03 PM EDT Images from the original note were not included. Duc Arenas M.D. Department of Orthopaedic Surgery Adult Reconstructive Shoulder/ Sports Medicine [address] [place] [address] Low Back Pain Exercise Guide Regular exercises to restore the strength of your back and a gradual return to everyday activities are important for your full recovery. These exercises are specifically designed to rehabilitate the muscles of the lower back by increasing the strength and flexibility. This exercise program should be performed on a regular basis to regain and improve lost muscular strength, endurance, and flexibility; thus a consistent effort on your part is required to obtain the maximum benefit from the exercise program outlined. When correctly performed all of these exercises may be accomplished without difficulty. You may notice some muscular fatigue and soreness for the initiation of the exercise program, but this should be distinguished from pain. In addition, there should not be any increase in pain or swelling. These signs may indicate too much activity too fast, and necessitate that you consult with your doctor. Heat-up lower back- Always heat-up the area prior to stretching and exercises for 15 to 20 minutes. Suggested heating techniques: A) Towels soaked in hot water B) Heat packs C) Hot tubs *Always use caution when applying heat to the body surface. The amount of heat applied should not exceed the patients comfort level. Use a dry towel as a barrier between the skin and the hot towel or hot pack to help protect the skin, when needed. Initial Exercise Program Ankle Pumps Lie on your back. Move ankles up and down. Repeat 10 times. Repeat 10 times. Heel Slides Lie on your back. Slowly bend and straighten knee. Repeat 10 times. Abdominal Contraction Lie on your back with knees bent and hands resting below ribs. Tighten abdominal muscles to squeeze ribs down toward back. Be sure not to hold breath. Hold 5 seconds. Relax. Repeat 10 times. Wall Squats Stand with back leaning against wall. Walk feet 12 inches in front of body. Keep abdominal muscles tight while slowly bending both knees 45 degrees. Hold 5 seconds. Slowly return to upright position. Repeat 10 times. Heel Raises Stand with weight even on both feet. Slowly raise heels up and down. Repeat 10 times. Straight Leg Raises Lie on your back with one leg straight and one knee bent. Tighten abdominal muscles to stabilize low back. Slowly lift leg straight up about 6 to 12 inches and hold 1 to 5 seconds. Lower leg slowly. Repeat 10 times. Intermediate Exercise Program Single Knee to Chest Stretch Lie on your back with both knees bent. Hold thigh behind knee and bring one knee up to chest. Hold 20 seconds. Relax. Repeat 5 times on each side. Hamstring Stretch Lie on your back with legs bent. Hold one thigh behind knee. Slowly straighten knee until a stretch is felt in back of thigh. Hold 20 seconds. Relax. Repeat 5 times on each side. Lumbar Stabilization Exercises With Afghan Ball Abdominal muscles must remain contracted during each exercise (see Abdominal Contraction). Perform each exercise for 60 seconds. The farther the ball is from your body, the harder the exercise. Lying on Floor Lie on your back with knees bent and calves resting on ball. Slowly raise arm over head and lower arm, alternating right and left sides. Slowly straighten one knee and relax, alternating right and left sides. Slowly straighten one knee and raise opposite arm over head. Alternate opposite arms and legs. Slowly walk ball forward and backward with legs. Sitting on Ball Sit on ball with hips and knees bent 90 and feet resting on floor. Slowly raise arm over head and lower arm, alternating right and left sides. Slowly raise and lower heel, alternating right and left sides. Slowly raise one heel and raise opposite arm over head. Alternate opposite arm and heel. Marching: Slowly raise one foot 2 inches from floor, alternating right and left sides. Standing Stand with ball between your low back and wall. Slowly bend knees 45 to 90 . Hold 5 seconds. Straighten knees. Slowly bend knees 45 to 90 while raising both arms over head. Lying on Ball Lie on your stomach over ball Slowly raise alternate arms over head. Slowly raise alternate legs 2 to 4 inches from floor. Combine 1 and 2, alternating opposite arms and legs. Bend one knee. Slowly lift this leg up, alternating right and left legs. NOTE: Be careful not to arch your low back! Advanced Exercise Program Hip Flexor Stretch Lie on your back near edge of bed, holding knees to chest. Slowly lower one leg down, keeping knee bent, until a stretch is felt across top of the hip/thigh. Hold 20 seconds. Relax. Repeat 5 times on each side. Piriformis Stretch Lie on back with both knees bent. Cross one leg on top of the other. Pull opposite knee to chest until a stretch is felt in the buttock/hip area. Hold 20 seconds. Relax. Repeat 5 times each side. Lumbar Stabilization Exercise With Afghan Ball Lie on stomach over ball. Walk hands out in front of ball until ball is under legs. Reverse to starting position. Walk hands out in front of ball until ball is under legs and slowly raise alternating arms over head. Walk hands out in front of ball and slowly perform push-ups. Aerobic Exercises Maintain spine in neutral position while stabilizing with abdominal muscles to protect the low back during aerobic exercise. Stationary bike for 20 to 30 minutes. Treadmill for 20 to 30 minutes. Cool down- Upon completion of exercises it is essential to cool the area down. This will help control any inflammation, pain, and help enhance the healing process. Suggested techniques: A) Ice Bag: A bag of ice placed over the injured area for 15-20 minutes. B) Ice massage: Using a paper or Styrofoam cup filled with water, freeze it, and massage it over the area peeling the cup away as the ice melts for 15-20 minutes. *Always use caution when applying ice or cold directly to the skin. Use a dry towel as a barrier between the skin and ice if needed. * BE AWARE that ice causes a normal physiologic response and pattern of sensations; Cold, Burning, Aching, then Numbness (CBAN). If the ice is too uncomfortable use a cool towel. documented in this encounter [facility] 02-04-2025 Note HNO ID: [id number] Author: SURYA TATUM APRN.STOCK WORKER Service: ? Author Type: Nurse Practitioner Type: Progress Notes Filed: 02/04/2025 12:06 Note Text: Chief Complaint Patient presents with: Follow Up: Blood pressure Back Pain: Low back pain X 1 month HPI Severino Resendiz is a 39 year old male who presents here today for Above Complaints.. Patient presents for follow up BP. Has been taking his lisinopril daily. Takes his BP at home about 3 times weekly which usually runs high 130's over 90's. Does develop headaches when his BP is elevated. Denies any chest pain, palpitations. Has had intermittent light headedness and dizziness over the last few days. Does drink body armor and other drinks with electrolytes at work, increases his water consumption on hot days. Does not eat much at work. States that BP has consistently been higher since starting new stressful job in September. Also has low back pain that began after sleeping for about 12 hours 3 weeks ago. States pain is lower back, radiates down bilateral legs to mid thigh. Has tried resting, icing and going to the chiropractor. Ibuprofen and icing help the pain minimally. Has a hx of pain to upper lumbar spine, but states that this pain is different and radiates. 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 Has had Xrays in the past at he chiropractors that were negative. Patient concerned for a bulged disk. Due for routine blood work. Past medical history, appointments, medications, allergies reviewed. Previous Medical History PAST MEDICAL HISTORY Diagnosis Date Hypertension PMH - PAST MEDICAL HISTORY OF 01/02/93 NORMAL COLOR VISION PSVT (paroxysmal supraventricular tachycardia) (HCC) began in 2004 Previous Surgical History PAST SURGICAL HISTORY Procedure Laterality Date CLOSED RX NOSE/JAW FRAC+WIRES N/A JOINT REPLACEMENT HX PAST SURGICAL HISTORY OF right MCL reconstruction PT ED DENTAL HEALTH N/A 4 implants TONSILLECTOMY HX 2012 Family History FAMILY HISTORY Problem Relation Age of Onset Hypertension Mother 55 Hyperlipidemia Mother other (Cirrhosis) Mother other (sleep apnea) Father Type II Carotid Disease Father other (SVT) Father Cancer Maternal Grandmother (may of been Lung) Asthma Maternal Grandfather Emphysema Maternal Grandfather Hypertension Paternal Grandmother Diabetes Paternal Grandmother other (cirrhosis) Paternal Grandmother Stroke Paternal Uncle Alzheimer's Disease No Family History Colon Cancer No Family History Prostate Cancer No Family History Breast Cancer No Family History Ovarian cancer No Family History Coronary Artery Disease No Family History Kidney Disease No Family History Seizures No Family History Thyroid No Family History Patient Allergies ALLERGIES No Known Allergies Current Medications Current Outpatient Medications on File Prior to Visit Medication Sig lisinopril (ZESTRIL) 10 mg tablet Take 1 tablet by mouth once daily. hydrocortisone (ANUSOL-HC) 25 mg suppository 1 Suppository by RECTAL route two times a day as needed (hemorrhoids/rectal pain). (Patient not taking: Reported on 02/04/2025) therapeutic multivitamin (THERA VITAMIN) tablet Take 1 tablet by mouth once daily. (Patient not taking: Reported on 02/04/2025) No current facility-administered medications on file prior to visit. Social History Social History Tobacco Use Smoking status: Never Smokeless tobacco: Never Vaping Use Vaping status: Never Used Substance Use Topics Alcohol use: Not Currently Comment: 2-3 beers a day Drug use: No Review of Symptoms REVIEW OF SYSTEMS SEE HPI EXAM: BP 129/84 Pulse 74 Wt 99 kg (218 lb 4.1 oz) BMI 25.88 kg/m? General Appearance: Well appearing, alert, in no acute distress, well-hydrated, well nourished.. Skin: Skin color, texture, turgor normal, no suspicious rashes or lesions. Head: Normocephalic, no masses, lesions, tenderness or abnormalities. Back:motor and sensory appear to be normal, Right side lean causes pain, negative pain when leaning to the left, forward and backward bend good ROM, but states can be painful when leaning forward, pressure when leaning backwards, left side twist was painful, but no pain with right side twist. Lungs: Lungs clear to auscultation. No wheezing, rhonchi, rales. Heart: RRR without murmur, gallop, or rubs. No ectopy. Health Maintenance List Depression Screening Never done Anxiety Screening Never done Influenza Vaccine(1) due on 03/08/2025 Annual PCP Team Chronic Disease Visit due on 02/04/2026 Lipid Screening due on 07/16/2027 DTaP,Tdap,Td Vaccine(8 - Td or Tdap) due on 01/12/2032 Hepatitis B Vaccine Completed Hepatitis C Screening Discontinued HIV Screening Discontinued Data reviewed Last 14 BP Last 14 Encounter BP Readings: Date: BP: 02/04/2025 129/84 11/18/2023 128/86 10/18/2023 130/91 07/18/2023 135/96 (more content not included)... [facility] 02-04-2025 History of Presen t illness Narrative Chief Complaint Patient presents with: Follow Up: Blood pressure Back Pain: Low back pain X 1 month HPI Severino Resendiz is a 39 year old male who presents here today for Above Complaints.. Patient presents for follow up BP. Has been taking his lisinopril daily. Takes his BP at home about 3 times weekly which usually runs high 130's over 90's. Does develop headaches when his BP is elevated. Denies any chest pain, palpitations. Has had intermittent light headedness and dizziness over the last few days. Does drink body armor and other drinks with electrolytes at work, increases his water consumption on hot days. Does not eat much at work. States that BP has consistently been higher since starting new stressful job in September. Also has low back pain that began after sleeping for about 12 hours 3 weeks ago. States pain is lower back, radiates down bilateral legs to mid thigh. Has tried resting, icing and going to the chiropractor. Ibuprofen and icing help the pain minimally. Has a hx of pain to upper lumbar spine, but states that this pain is different and radiates. 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 Has had Xrays in the past at he chiropractors that were negative. Patient concerned for a bulged disk. Due for routine blood work. Past medical history, appointments, medications, allergies reviewed. Previous Medical History PAST MEDICAL HISTORY Diagnosis Date Hypertension PMH - PAST MEDICAL HISTORY OF 01/02/93 NORMAL COLOR VISION PSVT (paroxysmal supraventricular tachycardia) (HCC) began in 2004 Previous Surgical History PAST SURGICAL HISTORY Procedure Laterality Date CLOSED RX NOSE/JAW FRAC+WIRES N/A JOINT REPLACEMENT HX PAST SURGICAL HISTORY OF right MCL reconstruction PT ED DENTAL HEALTH N/A 4 implants TONSILLECTOMY HX 2012 Family History FAMILY HISTORY Problem Relation Age of Onset Hypertension Mother 55 Hyperlipidemia Mother other (Cirrhosis) Mother other (sleep apnea) Father Type II Carotid Disease Father other (SVT) Father Cancer Maternal Grandmother (may of been Lung) Asthma Maternal Grandfather Emphysema Maternal Grandfather Hypertension Paternal Grandmother Diabetes Paternal Grandmother other (cirrhosis) Paternal Grandmother Stroke Paternal Uncle Alzheimer's Disease No Family History Colon Cancer No Family History Prostate Cancer No Family History Breast Cancer No Family History Ovarian cancer No Family History Coronary Artery Disease No Family History Kidney Disease No Family History Seizures No Family History Thyroid No Family History Patient Allergies ALLERGIES No Known Allergies Current Medications Current Outpatient Medications on File Prior to Visit Medication Sig lisinopril (ZESTRIL) 10 mg tablet Take 1 tablet by mouth once daily. hydrocortisone (ANUSOL-HC) 25 mg suppository 1 Suppository by RECTAL route two times a day as needed (hemorrhoids/rectal pain). (Patient not taking: Reported on 02/04/2025) therapeutic multivitamin (THERA VITAMIN) tablet Take 1 tablet by mouth once daily. (Patient not taking: Reported on 02/04/2025) No current facility-administered medications on file prior to visit. Social History Social History Tobacco Use Smoking status: Never Smokeless tobacco: Never Vaping Use Vaping status: Never Used Substance Use Topics Alcohol use: Not Currently Comment: 2-3 beers a day Drug use: No Review of Symptoms REVIEW OF SYSTEMS SEE HPI EXAM: BP 129/84 Pulse 74 Wt 99 kg (218 lb 4.1 oz) BMI 25.88 kg/m General Appearance: Well appearing, alert, in no acute distress, well-hydrated, well nourished.. Skin: Skin color, texture, turgor normal, no suspicious rashes or lesions. Head: Normocephalic, no masses, lesions, tenderness or abnormalities. Back:motor and sensory appear to be normal, Right side lean causes pain, negative pain when leaning to the left, forward and backward bend good ROM, but states can be painful when leaning forward, pressure when leaning backwards, left side twist was painful, but no pain with right side twist. Lungs: Lungs clear to auscultation. No wheezing, rhonchi, rales. Heart: RRR without murmur, gallop, or rubs. No ectopy. Health Maintenance List Depression Screening Never done Anxiety Screening Never done Influenza Vaccine(1) due on 03/08/2025 Annual PCP Team Chronic Disease Visit due on 02/04/2026 Lipid Screening due on 07/16/2027 DTaP,Tdap,Td Vaccine(8 - Td or Tdap) due on 01/12/2032 Hepatitis B Vaccine Completed Hepatitis C Screening Discontinued HIV Screening Discontinued Data reviewed Last 14 BP Last 14 Encounter BP Readings: Date: BP: 02/04/2025 129/84 11/18/2023 128/86 10/18/2023 130/91 07/18/2023 135/96 12/11/2022 136/85 11/02/2022 125/90 08/30/2022 130/92 07/16/2022 130/82 06/09/2022 124/86 01/11/2022 162/105 07/14/2021 120/90 01/16/2021 120/70 10/17/2020 155/107[True BP average[ 08/21/2019 130/89 ASSESSMENT/PLAN: 1. Acute midline low back pain without sciatica - ICD9: 724.2, ICD10: M54.50 (primary diagnosis) - XR LUMBAR PARS DEFECT 4V AP/LAT/BOTH OBL 2. Well adult exam - ICD9: V70.0, ICD10: Z00.00 - Counseled on healthy diet and regular exercise - Follow up for annual exam in one year - COMPLETE BLOOD COUNT AND DIFFERENTIAL - COMPREHENSIVE METABOLIC PANEL 3. Encounter for screening for diabetes mellitus - ICD9: V77.1, ICD10: Z13.1 - HEMOGLOBIN A1C 4. Encounter for lipid screening for cardiovascular disease - ICD9: V77.91, V81.2, ICD10: Z13.220, Z13.6 - LIPID PANEL, NONFASTING 5. Hypertension, essential - ICD9: 401.9, ICD10: I10 - Controlled - Continue current medications - Recommend home blood pressure monitoring, to bring results to next visit - Encouraged sodium restriction, DASH or Mediterranean diet - Recommend regular aerobic exercise - LISINOPRIL 10 MG TABLET Surya Tatum APRN.STOCK WORKER documented in this encounter [facility] 11-26-2024 Note HNO ID: [id number] Author: ?, ?, ? Service: ? Author Type: ? Type: Progress Notes Filed: 12/24/2024 13:13 Note Text: Hypertension Outreach Severino Resendiz has been identified for clinical review due to having hypertension without an appointment in the past year. PSS Team - Please contact the patient with the following script: Daniel Douglas MD has identified that you are in need of ongoing care of your hypertension and have not had a blood pressure visit with us in the last year. We would like to assist you in making an appointment to ensure that we control your blood pressure and keep you as healthy as possible. Outreach Outcome/Action: Unable to reach patient: Left message Note - if they see another provider, please update their chart. [facility] 11-26-2024 History of Presen t illness Narrative Hypertension Outreach Seveirno Resendiz has been identified for clinical review due to having hypertension without an appointment in the past year. PSS Team - Please contact the patient with the following script: Daniel Douglas MD has identified that you are in need of ongoing care of your hypertension and have not had a blood pressure visit with us in the last year. We would like to assist you in making an appointment to ensure that we control your blood pressure and keep you as healthy as possible. Outreach Outcome/Action: Unable to reach patient: Left message Note - if they see another provider, please update their chart. documented in this encounter [facility] 11-26-2024 Note Patient Outreach (4C Q) SEVERINO RESENDIZ ([id number]) 1985 M Date Time Provider Department 11/26/24 DANIEL DOUGLAS 4CQ During your visit today, we recorded the following information about you: Lindsay Hooker 12/24/2024 1:13 PM Signed Hypertension Outreach Severino Resendiz has been identified for clinical review due to having hypertension without an appointment in the past year. PSS Team - Please contact the patient with the following script: Daniel Douglas MD has identified that you are in need of ongoing care of your hypertension and have not had a blood pressure visit with us in the last year. We would like to assist you in making an appointment to ensure that we control your blood pressure and keep you as healthy as possible. Outreach Outcome/Action: Unable to reach patient: Left message Note - if they see another provider, please update their chart. Allergies As of Date: 11/26/2024 (No Known Allergies) Date Reviewed: 11/18/2023 Reviewed by: Sonja Doty OCCA - Fully Assessed Reason for Visit: Blood Pressure [15] Prescriptions as of 12/24/2024 - lisinopril (ZESTRIL) 10 mg tablet Take 1 tablet by mouth once daily. - hydrocortisone (ANUSOL-HC) 25 mg suppository 1 Suppository by RECTAL route two times a day as needed (hemorrhoids/rectal pain). - therapeutic multivitamin (THERA VITAMIN) tablet Take 1 tablet by mouth once daily. Problem List As Of Date 11/26/2024 Noted Resolved PSVT (paroxysmal supraventricular tachycardia) * Well adult exam [Z00.00] 08/06/2019 Encounter for screening for diabetes mellitus [*08/06/2019 Hypertension, essential [I10] 12/21/2020 Pre-operative cardiovascular examination [Z01.8*07/18/2023 Encounter Status:Closed by LINDSAY HOOKER on 12/24/24 [facility] 06-29-2024 Telephone encounter Note Prescription Refill Information The patient has been identified by name and date of : Yes Caregiver verified no other encounters exist for this prescription request: Yes Caregiver confirmed with patient/requestor that no other refills are due, in the near future, with this provider at this time: Yes The last office visit in the department: 11/2023 Does the patient have a future office visit with this provider/department: Yes Requested Prescriptions Pending Prescriptions Disp Refills lisinopril (ZESTRIL) 10 mg tablet 90 tablet 1 Sig: Take 1 tablet by mouth once daily. Monica Tobias MA June 29, 2024 11:27 AM [facility] 06-29-2024 Miscellaneous Notes Prescription Refill Information The patient has been identified by name and date of : Yes Caregiver verified no other encounters exist for this prescription request: Yes Caregiver confirmed with patient/requestor that no other refills are due, in the near future, with this provider at this time: Yes The last office visit in the department: 11/2023 Does the patient have a future office visit with this provider/department: Yes Requested Prescriptions Pending Prescriptions Disp Refills lisinopril (ZESTRIL) 10 mg tablet 90 tablet 1 Sig: Take 1 tablet by mouth once daily. Monica Tobias MA June 29, 2024 11:27 AM documented in this encounter [facility] 11-18-2023 History of Presen t illness Narrative Chief Complaint Patient presents with: Rectal Problem: Hx of hemorrhoids, last had in April of 2023, tried pink emeli, bright red bleeding after bowel movement x2 months HPI Severino Resendiz is a 38 year old male who presents here today for Above Complaints.. Patient presents for complaints of hemorrhoids. Patient has a history of hemorrhoids and for the past two months he has noticed blood after having a BM. Patient reports there is blood when he wipes after BM but no large amount of blood or blood in the toilet. Past medical history, appointments, medications, allergies reviewed. Previous Medical History PAST MEDICAL HISTORY Diagnosis Date Hypertension PMH - PAST MEDICAL HISTORY OF 01/02/93 NORMAL COLOR VISION PSVT (paroxysmal supraventricular tachycardia) began in 2004 Previous Surgical History PAST SURGICAL HISTORY Procedure Laterality Date CLOSED RX NOSE/JAW FRAC+WIRES N/A JOINT REPLACEMENT HX PAST SURGICAL HISTORY OF right MCL reconstruction PT ED DENTAL HEALTH N/A 4 implants TONSILLECTOMY HX 2012 Family History FAMILY HISTORY Problem Relation Age of Onset Hypertension Mother 55 Hyperlipidemia Mother other (Cirrhosis) Mother other (sleep apnea) Father Type II Carotid Disease Father other (SVT) Father Cancer Maternal Grandmother (may of been Lung) Asthma Maternal Grandfather Emphysema Maternal Grandfather Hypertension Paternal Grandmother Diabetes Paternal Grandmother other (cirrhosis) Paternal Grandmother Stroke Paternal Uncle Alzheimer's Disease No Family History Colon Cancer No Family History Prostate Cancer No Family History Breast Cancer No Family History Ovarian cancer No Family History Coronary Artery Disease No Family History Kidney Disease No Family History Seizures No Family History Thyroid No Family History Patient Allergies ALLERGIES No Known Allergies Current Medications Current Outpatient Medications on File Prior to Visit Medication Sig lisinopril (ZESTRIL) 10 mg tablet Take 1 tablet by mouth once daily. therapeutic multivitamin (THERA VITAMIN) tablet Take 1 tablet by mouth once daily. No current facility-administered medications on file prior to visit. Social History Social History Tobacco Use Smoking status: Never Smokeless tobacco: Never Vaping Use Vaping Use: Never used Substance Use Topics Alcohol use: Not Currently Comment: 2-3 beers a day Drug use: No Review of Symptoms REVIEW OF SYSTEMS SEE HPI EXAM: BP 128/86 Pulse 76 Resp 16 Wt 102.5 kg (226 lb) SpO2 97% BMI 26.80 kg/m General Appearance: Well appearing, alert, in no acute distress, well-hydrated, well nourished.. Rectal: Positive findings: Internal hemorrhoids. Health Maintenance List Behavioral Health Screening Never done BP Controlled (<130/80) due on 07/16/2023 Annual PCP Team Chronic Disease Visit due on 08/30/2023 Influenza Vaccine(Season Ended) due on 03/08/2024 Lipid Screening due on 07/16/2027 DTaP,Tdap,Td Vaccine(8 - Td or Tdap) due on 01/12/2032 Hepatitis B Vaccine Completed HPV Vaccine Aged Out Hepatitis C Screening Discontinued HIV Screening Discontinued Covid-19 Vaccine Discontinued ASSESSMENT/PLAN: 1. Internal hemorrhoid - ICD9: 455.3, ICD10: K64.4 (primary diagnosis) - HYDROCORTISONE ACETATE 25 MG RECTAL SUPPOSITORY 2. Hypertension, essential - ICD9: 401.9, ICD10: I10 - Controlled - Continue current medications - Recommend home blood pressure monitoring, to bring results to next visit - Encouraged sodium restriction, DASH or Mediterranean diet - Recommend regular aerobic exercise - LISINOPRIL 10 MG TABLET Surya Tatum APRN.STOCK WORKER documented in this encounter [facility] 10-18-2023 History of Presen t illness Narrative Images from the original note were not included. [facility] Department of Cardiovascular Medicine SECTION OF CARDIAC PACING and ELECTROPHYSIOLOGY OUTPATIENT VISIT DATE October 18, 2023 OUTPATIENT VISIT TYPE ESTABLISHED PRIMARY CARE PHYSICIAN: Daniel Douglas [address] [place] [address] CHIEF COMPLAINT: Arrhythmia HISTORY OF PRESENT ILLNESS: Mr. Resendiz is a 38 year old male who presents today for follow-up visit for SVT. Patient is established with Dr. Delaney, seen last 07/18/2023. He has a history of HTN and paroxsymal SVT. He began having symptoms of intermittent episodes of very rapid heart beats around age 19, with sudden onset/offset and terminating with vagal maneuvers. He was seen by cardiology in 2010 and wore a physical therapy professor but no events occurred. He reported palpitations at PCP visit 07/16/2022 and was given a Zio monitor 07/16/22-07/23/22, which showed 1 episode of SVT lasting 7 minutes 43 seconds with a max rate of 235 bpm (avg 206 bpm). He was started on Toprol 25 mg daily, ultimately changed to coreg. 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 Delaney. Presents today for a follow up. Has been off Coreg since the ablation was done. No events, denies recurrences. He denies chest pain, shortness of breath, orthopnea, cough, edema, palpitations, PND, lightheadedness or syncope. PAST CARDIAC HISTORY: PAST MEDICAL HISTORY Diagnosis Date Hypertension PMH - PAST MEDICAL HISTORY OF 01/02/93 NORMAL COLOR VISION PSVT (paroxysmal supraventricular tachycardia) began in 2004 PAST SURGICAL HISTORY Procedure Laterality Date CLOSED RX NOSE/JAW FRAC+WIRES N/A JOINT REPLACEMENT HX PAST SURGICAL HISTORY OF right MCL reconstruction PT ED DENTAL HEALTH N/A 4 implants TONSILLECTOMY HX 2013 SOCIAL HISTORY Social History Tobacco Use Smoking status: Never Smokeless tobacco: Never Vaping Use Vaping Use: Never used Substance Use Topics Alcohol use: Not Currently Comment: 2-3 beers a day Drug use: No FAMILY HISTORY Problem Relation Age of Onset Hypertension Mother 55 Hyperlipidemia Mother other (Cirrhosis) Mother other (sleep apnea) Father Type II Carotid Disease Father other (SVT) Father Cancer Maternal Grandmother (may of been Lung) Asthma Maternal Grandfather Emphysema Maternal Grandfather Hypertension Paternal Grandmother Diabetes Paternal Grandmother other (cirrhosis) Paternal Grandmother Stroke Paternal Uncle Alzheimer's Disease No Family History Colon Cancer No Family History Prostate Cancer No Family History Breast Cancer No Family History Ovarian cancer No Family History Coronary Artery Disease No Family History Kidney Disease No Family History Seizures No Family History Thyroid No Family History ALLERGIES: ALLERGIES No Known Allergies MEDICATIONS: lisinopril (ZESTRIL) 10 mg tablet Take 1 tablet by mouth once daily. carvedilol (COREG) 3.125 mg tablet Take 1 tablet by mouth two times a day. therapeutic multivitamin (THERA VITAMIN) tablet Take 1 tablet by mouth once daily. REVIEW OF SYSTEMS: GENERAL: Negative for: Weight loss or gain, Fever or Chills, Weakness and Sleep difficulties. HEENT: Negative for: Headache, Impaired Vision, Glasses, Hearing Impairment, Ringing in Ears, Nosebleeds, Poor dental care, Bleeding Gums, Dentures NECK: Negative for: Swelling, Pain, Stiffness RESPIRATORY: Negative for: Cough, Blood in Sputum, Shortness of breath, Wheezing, Apnea GASTROINTESTINAL: Negative for: Trouble swallowing, Heartburn, Change in bowel habits, Blood in stool, Dark black stools MUSCULOSKELETAL: Negative for: Muscle or joint pain, Stiffness , Joint swelling NEUROLOGIC/PSYCHIATRIC: Negative for: Weakness, Paralysis, Numbness, Tingling, Tremor, Nervousness, Depressed mood, Memory loss SKIN: Negative for: Rashes, Itching HEMATOLOGICAL/LYMPHATIC: Negative for: Easy bruising , Easy bleeding ENDOCRINE: Negative for: Heat or cold intolerance, Excessive sweating, Frequent urination, Frequent thirst PHYSICAL EXAMINATION: BP 130/91 Pulse 70 Ht 195.6 cm (6' 5) Wt 102.5 kg (226 lb) BMI 26.80 kg/m General: Well appearing, in no acute distress, speaking in complete sentences. Lungs: Clear to auscultation bilaterally, no wheezing or rhonchi. Heart: Regular rhythm, PMI not displaced, S1, S2 normal, no S3, no S4, no heaves, no rub and no murmur. Abdomen: Soft, nontender, bowel sounds normal, no palpable organomegaly, no bruits. Extremities: No peripheral edema . Grade 2/4 distal pulses bilaterally. Neuro: Oriented to person, place and time, alert, cooperative, gait coordinated. CARDIOVASCULAR MEDICINE TESTING: Last EKG Result Conclusion ECG COMPLETE Collected: 10/18/2023 1:13 PM (Preliminary result) Impression: NORMAL SINUS RHYTHM NORMAL ECG IMPRESSION: Mr. Resendiz is a 38 year old male who presents today for follow-up visit for SVT. Patient is established with Dr. Delaney, seen last 07/18/2023. He has a history of HTN and paroxsymal SVT. SVT He began having symptoms of intermittent episodes of very rapid heart beats around age 19, with sudden onset/offset and terminating with vagal maneuvers. He was seen by cardiology in 2010 and wore a physical therapy professor but no events occurred. He reported palpitations at PCP visit 07/16/2022 and was given a Zio monitor 07/16/22-07/23/22, which showed 1 episode of SVT lasting 7 minutes 43 seconds with a max rate of 235 bpm (avg 206 bpm). He was started on Toprol 25 mg daily, ultimately changed to coreg. 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 Delaney. Presents today for a follow up. Has been off Coreg since the ablation was done. No events, denies recurrences. HTN Controlled on Lisinopril. Followed by PCP. PLAN AND RECOMMENDATIONS: Follow up with PCP for blood pressure management. Follow up with EP PRN CONTACT INFORMATION: Yvette Caban APRN.ELZA documented in this encounter [facility] 01-28-2023 Miscellaneous Notes Notified via [employer]. Jade Mcclelland Ma Please help patient schedule a complete PE for on or after 07/16/2023. Thank you. Jose Cooney LPN Please help patient schedule a complete PE for on or after 07/16/2023. The following approved medication requests have been transmitted electronically. Requested Prescriptions Signed Prescriptions Disp Refills carvedilol (COREG) 3.125 mg tablet 60 tablet 3 Sig: Take 1 tablet by mouth twice daily. Authorizing Provider: DANIEL DOUGLAS MD Patient phones requesting refills as follows: Requested Prescriptions Pending Prescriptions Disp Refills carvedilol (COREG) 3.125 mg tablet 90 tablet 0 Sig: Take 1 tablet by mouth twice daily. MICK-08/30/22 Labs-07/16/22 NOV-none Please review and advise. Saritha Arroyo LPN documented in this encounter [facility] 01-24-2023 Miscellaneous Notes The following approved medication requests have been transmitted electronically. Requested Prescriptions Signed Prescriptions Disp Refills lisinopril (ZESTRIL) 10 mg tablet 90 tablet 1 Sig: Take 1 tablet by mouth once daily. Authorizing Provider: DANIEL DOUGLAS MD Patient phones requesting refills as follows: Requested Prescriptions Pending Prescriptions Disp Refills lisinopril (ZESTRIL) 10 mg tablet 90 tablet 1 Sig: Take 1 tablet by mouth once daily. MICK-08/30/22 Labs-07/16/22 NOV-none Please review and advise. Saritha Arroyo LPN documented in this encounter [facility] 12-07-2022 Miscellaneous Notes The date of 02-18-[address] Delaney offered but declined by patient. Requested a date in July 09 due to his job. The new date of 07-19-[address] Delaney offered & accepted. Medication instructions given, as indicated below. Stated understanding. Needs OPD with Dr. Delaney & Labs (CBC,BMP,30 day T&S with Confirm) within 30 days prior to procedure date. Please call patient to schedule. ----- Message from Anita Delaney MD sent at 12/05/2022 11:04 AM EDT ----- Please schedule SVT ablation with de Carto ice Hold coreg for 2 days prior Thank you AH documented in this encounter [facility] 11-12-2022 Miscellaneous Notes Patient has been identified by name and date of : Yes Requested Prescriptions Pending Prescriptions Disp Refills carvedilol (COREG) 3.125 mg tablet 60 tablet 1 Sig: Take 1 tablet by mouth twice daily. RX INSTRUCTIONS: Patient aware RX will be sent to pharmacy. No need to notify patient. Patient last office visit: 08/30/22 Patient next office visit: none scheduled Jeny Tamayo MA documented in this encounter [facility] 11-02-2022 Instructions Breezy Gutiérrez MD - 11/02/2022 8:43 AM EDT Images from the original note were not included. [facility] Department of Cardiovascular Medicine SECTION OF CARDIAC PACING and ELECTROPHYSIOLOGY OUTPATIENT VISIT DATE November 02, 2022 OUTPATIENT VISIT TYPE CONSULTATION PRIMARY CARE PHYSICIAN: Daniel Douglas [address] [place] [address] REFERRING PHYSICIAN Brianna Sheriff [address] [facility] [id number] CHIEF COMPLAINT: SVT and palpitations HISTORY OF PRESENT ILLNESS: Cardiac consultation at the request of Dr. Brianna Sheriff. A copy of this consultation note will be provided to the requesting physician by way of shared Medical record or letter to requesting physician via US mail. Severino Resendiz is a 37 y/o male who presents for SVT. He has a history of HTN and paroxsymal SVT. He began having symptoms of intermittent episodes of very rapid heart beats around age 19. He was seen by cardiology in 2010 and wore a physical therapy professor but no events occurred. He reported palpitations at PCP visit 07/16/2022 and was given a Zio monitor 07/16/22-07/23/22 which showed 1 episode of SVT lasting 7 minutes 43 seconds with a max rate of 235 bpm (avg 206 bpm). He was started on Toprol 25 mg daily. He felt more fatigued and had more frequent palpitations (episodes around once a week). His Toprol was switched to Coreg 3.125 mg BID. He has not had any other recent cardiac testing. He reports he has felt a little better since being on Coreg. He has had some brief fluttering but has not had an SVT episodes. In the past he would have episode once a month to three times a year. Episodes would last 30 second up to 15 minutes. He would have racing heart beats, fatigued, lightheadedness, shortness of breath, sweating and felt like his heart was trying to jump out of out of his chest. He has never had syncope. When he is not having episodes he feels well. PAST MEDICAL HISTORY Diagnosis Date Hypertension PMH - PAST MEDICAL HISTORY OF 01/02/93 NORMAL COLOR VISION PSVT (paroxysmal supraventricular tachycardia) (HCC) began in 2004 PAST SURGICAL HISTORY Procedure Laterality Date CLOSED RX NOSE/JAW FRAC+WIRES N/A JOINT REPLACEMENT HX PAST SURGICAL HISTORY OF right MCL reconstruction PT ED DENTAL HEALTH N/A 4 implants TONSILLECTOMY HX 2013 SOCIAL HISTORY Social History Tobacco Use Smoking status: Never Smokeless tobacco: Never Vaping Use Vaping Use: Never used Substance Use Topics Alcohol use: Yes Comment: 2-3 beers a day Drug use: No FAMILY HISTORY Problem Relation Age of Onset Hypertension Mother 55 Hyperlipidemia Mother other (Cirrhosis) Mother other (sleep apnea) Father Type II Carotid Disease Father other (SVT) Father Cancer Maternal Grandmother (november of been Lung) Asthma Maternal Grandfather Emphysema Maternal Grandfather Hypertension Paternal Grandmother Diabetes Paternal Grandmother other (cirrhosis) Paternal Grandmother Stroke Paternal Uncle Alzheimer's Disease No Family History Colon Cancer No Family History Prostate Cancer No Family History Breast Cancer No Family History Ovarian cancer No Family History Coronary Artery Disease No Family History Kidney Disease No Family History Seizures No Family History Thyroid No Family History ALLERGIES: ALLERGIES No Known Allergies MEDICATIONS: carvedilol (COREG) 3.125 mg tablet Take 1 tablet by mouth twice daily. lisinopril (ZESTRIL, PRINIVIL) 10 mg tablet Take 1 tablet by mouth once daily. therapeutic multivitamin (THERA VITAMIN) tablet Take 1 tablet by mouth once daily. REVIEW OF SYSTEMS: General, constitutional: Weight loss or gain- No, Fever or chills-No, Weakness-No, Trouble sleeping-No. Head, Eyes, Ears, Mouth: Headache, head injury-No, Glasses or contact lenses-No, Pain-No, Impaired vision-No, Decreased hearing-No, Ringing in ears-No, Nose bleeds-No, Dental difficulties-No, Bleeding gums-No, Dentures-yes. Neck: Swelling-No, Pain-No, Stiffness-No. Respiratory: Cough-No, Spitting up blood-No, Shortness of breath-No, Wheezing or asthma-No. Musculoskeletal: Muscle or joint pain or stiffness-yes, Joint swelling-yes. Gastrointestinal: Difficulty swallowing-No, Heartburn-No, Change in bowel habits-No, Blood in stool, Dark black stools-No. Neurological/Psychiatric: Weakness, paralysis-No, Numbness-No, Tingling-No, Tremor-No, Nervousness or anxiety-No, Depressed mood-No, Memory loss-No. Skin: Rash-No, Itching-No. Hematological: Easy bruising-No, Easy bleeding-No. Endocrine: Heat or cold intolerance-No, Excessive sweating-No, Frequent urination-No, Frequent thirst-No. Rehana Lewis RN I have personally obtained or confirmed the work performed by ancillary clinical staff as described above and edited as necessary. PHYSICAL EXAMINATION: BP 125/90 Pulse 67 Ht 195.6 cm (6' 5) Wt 98.9 kg (218 lb) BMI 25.85 kg/m General appearance: Normal, Normal General Exam Skin: Skin color, texture, turgor normal. No rashes or lesions. Head: Normal Neck: Neck supple, no adenopathy; thyroid symmetric, normal size Lungs: Percussion normal. Good diaphragmatic excursion. Lungs clear to auscultation. Heart: PMI normal; normal rate, regular rhythm; normal heart sounds Abdomen: Abdomen soft, non-tender. BS normal. No masses, organomegaly Extremities: Normal exam of the extremities Neuro: Gait normal. CARDIOVASCULAR MEDICINE TESTING: Zio 07/16/22-07/23/22 I have personally reviewed the Electrocardiogram and Holter. IMPRESSION: Mr. Resendiz is a 37 year old male with 17 years of PSVT symptoms, sudden onset, offset, last 5-20 minutes, lightheaded but without syncope. Finally caught on a ZIO. Often starts when bends over, stops with vagal maneuvers. After explanation the patient wants to have an EP and ablation, very appropriate in my opinion. PLAN AND RECOMMENDATIONS: Send request for SVT ablation. I personally interviewed, confirmed and edited the above information as obtained by others. Documentation by Breezy Gutiérrez [place] [id number] November 02, 2022 8:28 AM documented in this encounter [facility] 11-02-2022 History of Presen t illness Narrative Images from the original note were not included. [facility] Department of [facility] Medicine SECTION OF CARDIAC PACING and ELECTROPHYSIOLOGY OUTPATIENT VISIT DATE November 02, 2022 OUTPATIENT VISIT TYPE CONSULTATION PRIMARY CARE PHYSICIAN: Daniel Douglas [address] [place] [address] REFERRING PHYSICIAN Brianna Sheriff [address] [facility] [address] CHIEF COMPLAINT: SVT and palpitations HISTORY OF PRESENT ILLNESS: Cardiac consultation at the request of Dr. Brianna Sheriff. A copy of this consultation note will be provided to the requesting physician by way of shared Medical record or letter to requesting physician via US mail. Severino Resendiz is a 37 y/o male who presents for SVT. He has a history of HTN and paroxsymal SVT. He began having symptoms of intermittent episodes of very rapid heart beats around age 19. He was seen by cardiology in 2010 and wore a physical therapy professor but no events occurred. He reported palpitations at PCP visit 07/16/2022 and was given a Zio monitor 07/16/22-07/23/22 which showed 1 episode of SVT lasting 7 minutes 43 seconds with a max rate of 235 bpm (avg 206 bpm). He was started on Toprol 25 mg daily. He felt more fatigued and had more frequent palpitations (episodes around once a week). His Toprol was switched to Coreg 3.125 mg BID. He has not had any other recent cardiac testing. He reports he has felt a little better since being on Coreg. He has had some brief fluttering but has not had an SVT episodes. In the past he would have episode once a month to three times a year. Episodes would last 30 second up to 15 minutes. He would have racing heart beats, fatigued, lightheadedness, shortness of breath, sweating and felt like his heart was trying to jump out of out of his chest. He has never had syncope. When he is not having episodes he feels well. PAST MEDICAL HISTORY Diagnosis Date Hypertension PMH - PAST MEDICAL HISTORY OF 01/02/93 NORMAL COLOR VISION PSVT (paroxysmal supraventricular tachycardia) (HCC) began in 2004 PAST SURGICAL HISTORY Procedure Laterality Date CLOSED RX NOSE/JAW FRAC+WIRES N/A JOINT REPLACEMENT HX PAST SURGICAL HISTORY OF right MCL reconstruction PT ED DENTAL HEALTH N/A 4 implants TONSILLECTOMY HX 2013 SOCIAL HISTORY Social History Tobacco Use Smoking status: Never Smokeless tobacco: Never Vaping Use Vaping Use: Never used Substance Use Topics Alcohol use: Yes Comment: 2-3 beers a day Drug use: No FAMILY HISTORY Problem Relation Age of Onset Hypertension Mother 55 Hyperlipidemia Mother other (Cirrhosis) Mother other (sleep apnea) Father Type II Carotid Disease Father other (SVT) Father Cancer Maternal Grandmother (may of been Lung) Asthma Maternal Grandfather Emphysema Maternal Grandfather Hypertension Paternal Grandmother Diabetes Paternal Grandmother other (cirrhosis) Paternal Grandmother Stroke Paternal Uncle Alzheimer's Disease No Family History Colon Cancer No Family History Prostate Cancer No Family History Breast Cancer No Family History Ovarian cancer No Family History Coronary Artery Disease No Family History Kidney Disease No Family History Seizures No Family History Thyroid No Family History ALLERGIES: ALLERGIES No Known Allergies MEDICATIONS: carvedilol (COREG) 3.125 mg tablet Take 1 tablet by mouth twice daily. lisinopril (ZESTRIL, PRINIVIL) 10 mg tablet Take 1 tablet by mouth once daily. therapeutic multivitamin (THERA VITAMIN) tablet Take 1 tablet by mouth once daily. REVIEW OF SYSTEMS: General, constitutional: Weight loss or gain- No, Fever or chills-No, Weakness-No, Trouble sleeping-No. Head, Eyes, Ears, Mouth: Headache, head injury-No, Glasses or contact lenses-No, Pain-No, Impaired vision-No, Decreased hearing-No, Ringing in ears-No, Nose bleeds-No, Dental difficulties-No, Bleeding gums-No, Dentures-yes. Neck: Swelling-No, Pain-No, Stiffness-No. Respiratory: Cough-No, Spitting up blood-No, Shortness of breath-No, Wheezing or asthma-No. Musculoskeletal: Muscle or joint pain or stiffness-yes, Joint swelling-yes. Gastrointestinal: Difficulty swallowing-No, Heartburn-No, Change in bowel habits-No, Blood in stool, Dark black stools-No. Neurological/Psychiatric: Weakness, paralysis-No, Numbness-No, Tingling-No, Tremor-No, Nervousness or anxiety-No, Depressed mood-No, Memory loss-No. Skin: Rash-No, Itching-No. Hematological: Easy bruising-No, Easy bleeding-No. Endocrine: Heat or cold intolerance-No, Excessive sweating-No, Frequent urination-No, Frequent thirst-No. Rehana Lewis RN I have personally obtained or confirmed the work performed by ancillary clinical staff as described above and edited as necessary. PHYSICAL EXAMINATION: BP 125/90 Pulse 67 Ht 195.6 cm (6' 5) Wt 98.9 kg (218 lb) BMI 25.85 kg/m General appearance: Normal, Normal General Exam Skin: Skin color, texture, turgor normal. No rashes or lesions. Head: Normal Neck: Neck supple, no adenopathy; thyroid symmetric, normal size Lungs: Percussion normal. Good diaphragmatic excursion. Lungs clear to auscultation. Heart: PMI normal; normal rate, regular rhythm; normal heart sounds Abdomen: Abdomen soft, non-tender. BS normal. No masses, organomegaly Extremities: Normal exam of the extremities Neuro: Gait normal. CARDIOVASCULAR MEDICINE TESTING: Zio 07/16/22-07/23/22 I have personally reviewed the Electrocardiogram and Holter. IMPRESSION: Mr. Resendiz is a 37 year old male with 17 years of PSVT symptoms, sudden onset, offset, last 5-20 minutes, lightheaded but without syncope. Finally caught on a ZIO. Often starts when bends over, stops with vagal maneuvers. After explanation the patient wants to have an EP and ablation, very appropriate in my opinion. PLAN AND RECOMMENDATIONS: Send request for SVT ablation. I personally interviewed, confirmed and edited the above information as obtained by others. Documentation by Breezy Gutiérrez [place] [id number] November 02, 2022 8:28 AM documented in this encounter [facility] 08-30-2022 History of Presen t illness Narrative Chief Complaint Patient presents with: Follow Up: Heart palpitations HPI Severino Resendiz is a 37 year old male who presents here today for Above Complaints.. Patient had trial of toprol of 25mg but patient states that this has made him more fatigued and his palpitations this past month have actually been more frequent. Patient does get shortness of breath and chest pain with the palpitations. Past medical history, appointments, medications, allergies reviewed. Previous Medical History PAST MEDICAL HISTORY Diagnosis Date Hypertension PMH - PAST MEDICAL HISTORY OF 01/02/93 NORMAL COLOR VISION PSVT (paroxysmal supraventricular tachycardia) (HCC) began in 2004 Previous Surgical History PAST SURGICAL HISTORY Procedure Laterality Date CLOSED RX NOSE/JAW FRAC+WIRES N/A JOINT REPLACEMENT HX PAST SURGICAL HISTORY OF right MCL reconstruction PT ED DENTAL HEALTH N/A 4 implants TONSILLECTOMY HX 2013 Family History FAMILY HISTORY Problem Relation Age of Onset Hypertension Mother 55 Hyperlipidemia Mother other (Cirrhosis) Mother other (sleep apnea) Father Type II Cancer Maternal Grandmother (may of been Lung) Hypertension Paternal Grandmother Diabetes Paternal Grandmother other (cirrhosis) Paternal Grandmother Asthma Maternal Grandfather Emphysema Maternal Grandfather Stroke Paternal Uncle Alzheimer's Disease No Family History Colon Cancer No Family History Prostate Cancer No Family History Breast Cancer No Family History Ovarian cancer No Family History Coronary Artery Disease No Family History Kidney Disease No Family History Seizures No Family History Thyroid No Family History Patient Allergies ALLERGIES No Known Allergies Current Medications Current Outpatient Medications on File Prior to Visit Medication Sig lisinopril (ZESTRIL, PRINIVIL) 10 mg tablet Take 1 tablet by mouth once daily. metoprolol succinate ER (TOPROL XL) 25 mg 24 hr tablet Take 1 tablet by mouth once daily. therapeutic multivitamin (THERA VITAMIN) tablet Take 1 tablet by mouth once daily. No current facility-administered medications on file prior to visit. Social History Social History Tobacco Use Smoking status: Never Smokeless tobacco: Never Vaping Use Vaping Use: Never used Substance Use Topics Alcohol use: Yes Drug use: No Review of Symptoms REVIEW OF SYSTEMS See hpi EXAM: BP 130/92 Pulse 67 Resp 16 Wt 101.6 kg (224 lb) BMI 26.56 kg/m General Appearance: Well appearing, alert, in no acute distress, well-hydrated, well nourished.. Health Maintenance List INFLUENZA(1) due on 01/04/2023 ANNUAL PCP TEAM CHRONIC DISEASE VISIT due on 07/16/2023 BP CONTROLLED (<130/80) due on 07/16/2023 LIPID SCREEN due on 07/16/2027 DTAP,TDAP,TD(8 - Td or Tdap) due on 01/12/2032 HEPATITIS B Completed DEPRESSION ASSESSMENT Completed HEPATITIS C SCREENING Discontinued HIV SCREENING Discontinued COVID-19 VACCINE Discontinued Data reviewed ASSESSMENT/PLAN: 1. PSVT (paroxysmal supraventricular tachycardia) (HCC) - ICD9: 427.0, ICD10: I47.1 At this point, patient would like to see specialist for possible permament tx options. In meantime we will try coreg Patient can update me via [employer] as needed. - CONSULT TO ELECTROPHYSIOLOGY Brianna Sheriff PA-C documented in this encounter [facility] 08-21-2022 Miscellaneous Notes The following approved medication requests have been transmitted electronically. Requested Prescriptions Signed Prescriptions Disp Refills lisinopril (ZESTRIL, PRINIVIL) 10 mg tablet 90 tablet 1 Sig: Take 1 tablet by mouth once daily. Authorizing Provider: DANIEL DOUGLAS MD Patient last visit with PCP 07/16/22 Follow up appointment scheduled 08/30/22 Bibi Funk Ma documented in this encounter [facility] 08-13-2022 Miscellaneous Notes Called and left a voicemail for the Patient to call back and ask for a nurse to receive the providers message. Christi Luis RN Please let patient know that his physical therapy professor did show one run of SVT that lasted approximately 7 minutes. I would like him to see cardiology, please find out if he has a preference for assistant coach or if he has seen one in the past. documented in this encounter [facility] 07-30-2022 Miscellaneous Notes Discussed trial of metoprolol ER 25 mg a day. Patient ok with this. He will also f/u in a month to see if doing better and if needs adjusted. The following approved medication requests have been transmitted electronically. Requested Prescriptions Signed Prescriptions Disp Refills metoprolol succinate ER (TOPROL XL) 25 mg 24 hr tablet 90 tablet 1 Sig: Take 1 tablet by mouth once daily. Authorizing Provider: DANIEL DOUGLAS MD Patient notified and voiced understanding. Monica Tobias MA Patient scheduled. Monica Tobias MA Please reach out to patient and see if when he gets his palpitations if he gets chest pain, shortness of breath or dizziness? Tova- I rhythm- reports patient had abnormal Zio patch results: SVT for 60 sec with 216 bpm. Reports this will be posted in about 20 min. documented in this encounter [facility] 07-20-2022 Miscellaneous Notes Unable to reach by phone mychart message sent Nikki Browne Cma No answer and no VM will try back later Nikki Browne Cma Please let patient know that his cholesterol panel is abnormal. I would like him to schedule a follow up to discuss these results and options for improvement of his cholesterol levels. documented in this encounter [facility] 07-16-2022 History of Presen t illness Narrative EVENT MONITOR DISPOSABLE PATCH INSTRUCTIONS Patient Name: Severino Resendiz Clinic Number: [id number] Skin prepped and cleansed with alcohol Patch secured to prepped area Monitor Activated Serial #: [id number] Patient Instructed: Prescribed order timeframe Bathing guidelines Usage of event button and diary documentation Return of monitor at the end of prescribed order Call with problems [phone] or [phone] ext. [phone] Patient expresses a good understanding of instructions Nikki Browne Cma Chief Complaint Patient presents with: Physical HPI Severino Resendiz is a 37 year old male who presents here today for Above Complaints.. Patient present for annual physical. Patient reports that overall he feels well. 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 Patient has recovered well. Patient reports that he takes his medications as directed. Patient reports that he has intermittent palpitations where he can feel his heart skip a beat or two and then reset. Patient reports that he notices it more when bending over. Past medical history, appointments, medications, allergies reviewed. Previous Medical History PAST MEDICAL HISTORY Diagnosis Date Hypertension PMH - PAST MEDICAL HISTORY OF 01/02/93 NORMAL COLOR VISION PSVT (paroxysmal supraventricular tachycardia) (HCC) began in 2004 Previous Surgical History PAST SURGICAL HISTORY Procedure Laterality Date JOINT REPLACEMENT HX PAST SURGICAL HISTORY OF right MCL reconstruction TONSILLECTOMY HX 2013 Family History FAMILY HISTORY Problem Relation Age of Onset Hypertension Mother 55 Hyperlipidemia Mother other (Cirrhosis) Mother other (sleep apnea) Father Type II Cancer Maternal Grandmother (may of been Lung) Hypertension Paternal Grandmother Diabetes Paternal Grandmother other (cirrhosis) Paternal Grandmother Asthma Maternal Grandfather Emphysema Maternal Grandfather Stroke Paternal Uncle Alzheimer's Disease No Family History Colon Cancer No Family History Prostate Cancer No Family History Breast Cancer No Family History Ovarian cancer No Family History Coronary Artery Disease No Family History Kidney Disease No Family History Seizures No Family History Thyroid No Family History Patient Allergies ALLERGIES No Known Allergies Current Medications Current Outpatient Medications on File Prior to Visit Medication Sig lisinopril (ZESTRIL, PRINIVIL) 10 mg tablet Take 1 tablet by mouth once daily. therapeutic multivitamin (THERA VITAMIN) tablet Take 1 tablet by mouth once daily. No current facility-administered medications on file prior to visit. Social History Social History Tobacco Use Smoking status: Never Smokeless tobacco: Never Vaping Use Vaping Use: Never used Substance Use Topics Alcohol use: Yes Drug use: No Review of Symptoms REVIEW OF SYSTEMS PAIN ASSESSMENT: Negative for pain, history of chronic pain, or current treatment for a chronic pain condition. GENERAL: No weight loss, malaise or fevers HEENT: Negative for frequent or significant headaches, No changes in hearing or vision, no nose bleeds or other nasal problems NECK: Negative for lumps, goiter, pain and significant neck swelling RESPIRATORY: Negative for cough, hemoptysis, wheezing, COPD, dyspnea or shortness of breath CARDIOVASCULAR: Negative for chest pain, leg swelling, hypertension, CHF or palpitations GI: No nausea, vomiting, or diarrhea : No history of dysuria, frequency or incontinence MUSCULOSKELETAL: back pain SKIN: Negative for lesions, rash, and itching PSYCH: Negative for sleep disturbance, mood disorder and recent psychosocial stressors HEMATOLOGY/LYMPHOLOGY: Negative for prolonged bleeding, bruising easily or swollen nodes ENDOCRINE: Negative for cold or heat intolerance, polyuria, polydipsia and goiter NEURO: No history of headaches, syncope, paralysis, seizures or tremors EXAM: BP 130/82 Pulse 72 Ht 195.6 cm (6' 5) Wt 102.5 kg (226 lb) BMI 26.80 kg/m General Appearance: Well appearing, alert, in no acute distress, well-hydrated, well nourished.. Skin: Skin color, texture, turgor normal, no suspicious rashes or lesions. Head: Normocephalic, no masses, lesions, tenderness or abnormalities. Eyes: Anicteric sclera. Pupils are equally round and reactive to light. Extraocular movements are intact. . Ears: External ears normal, canals clear. Nose/Sinuses: Nares normal, septum midline, mucosa normal, no drainage or sinus tenderness. Oropharynx: Lips, mucosa, and tongue normal, teeth and gums normal, oropharynx normal. Neck: Supple, no adenopathy; thyroid symmetric, normal size, no bruits. Back:no pain to palpation of vertebrae, good flexion and extension, good range of motion, no muscle tenderness, reflexes are 2+ and symmetric, motor and sensory appear to be normal, negative SLR test, no evidence of scoliosis Lungs: Lungs clear to auscultation. No wheezing, rhonchi, rales.. Heart: RRR without murmur, gallop, or rubs. No ectopy. Abdomen: Normal abdominal exam, Abdomen soft, non-tender. Bowel sounds normal. No masses, organomegaly. Extremities: No deformities, edema, skin discoloration, clubbing or cyanosis. Good capillary refill. . Musculoskeletal: No joint swelling, deformity, or tenderness. Peripheral Pulses: Normal. Neurologic: Gait normal. Reflexes normal and symmetric. Sensation grossly intact.. Health Maintenance List COVID-19 VACCINE(1) Never done HIV SCREENING Never done BP CONTROLLED (<130/80) due on 01/16/2022 DEPRESSION ASSESSMENT Never done ANNUAL PCP TEAM CHRONIC DISEASE VISIT due on 07/14/2022 INFLUENZA(1) due on 01/04/2023 LIPID SCREEN due on 11/03/2025 DTAP,TDAP,TD(8 - Td or Tdap) due on 01/12/2032 HEPATITIS B Completed HEPATITIS C SCREENING Discontinued ASSESSMENT/PLAN: 1. Wellness examination - ICD9: V70.0, ICD10: Z00.00 (primary diagnosis) - Counseled on healthy diet and regular exercise - Discussed need for and benefit of weight loss. BMI 26.80 kg/(m^2) - Depression screening tool completed and reviewed with patient. Based on score and interview, patient is not at risk for depression and recommended no further intervention at this time. Patient consents for immunization and understands risks and benefits. A VIS sheet on each immunization was given to the patient. - Follow up for annual exam in one year 2. Medication management - ICD9: V58.69, ICD10: Z79.899 -Complete Metabolic Panel -Complete Blood Count 3. Screening for lipid disorders - ICD9: V77.91, ICD10: Z13.220 -Lipid Panel, Nonfasting 4. Palpitations -Zio Patch Surya Tatum APRN.CNP documented in this encounter [facility] 07-16-2022 Instructions Surya Tatum APRN.CNP - 07/16/2022 9:25 AM EST Continue current medications Complete lab work Follow up in 1 year. documented in this encounter [facility] 05-28-2022 Miscellaneous Notes Patient notified and scheduled. Monica Tobias MA Ease assist patient with scheduling a complete PE on or after 07/14/2022. Seeing Surya Tatum is ok as well as Brianna or myself. The following approved medication requests have been transmitted electronically. Requested Prescriptions Signed Prescriptions Disp Refills lisinopril (ZESTRIL, PRINIVIL) 10 mg tablet 90 tablet 0 Sig: Take 1 tablet by mouth once daily. Authorizing Provider: DANIEL DOUGLAS MD Last refill 02/12/22 Qty: 90 with 0 refills MICK 07/14/21 NOV none scheduled Jose Cooney LPN documented in this encounter [facility] 02-12-2022 Miscellaneous Notes Patient has been identified by name and date of : Yes Pending Prescriptions Disp Refills LISINOPRIL 10 MG TABLET 90 tablet 0 Sig: Take 1 tablet by mouth once daily. LAURO: No RX INSTRUCTIONS: Patient aware RX will be sent to pharmacy. No need to notify patient. Monica Tobias MA Mick: 07/2021 No appointment scheduled Last refill: 10/2021 documented in this encounter [facility] 01-22-2022 Hospital Discharg e Kyung Flaherty RN - 01/22/2022 3:15 PM EDT Images from the original note were not included. Healed Minor: Home Instructions Your burn looks pink and healed. Because the moisturizing properties of the skin take up to 6-12 months to heal, you should apply lotion to the healed areas 2-4 times a day. If the skin is allowed to be too dry, it will crack and scale and could allow bacteria to enter the skin. If the skin is too moist, the skin may develop blocked oil glands or a rash. The lotion should be massaged in completely, should provide moisture for 6-8 hours, and should be washed off before applying new lotion. The best lotions have WATER listed as the first ingredient, followed by aloe, lanolin or glycerol and vitamin E. AVOID lotions with mineral oil (blocks the pores) and alcohol (dries the skin), unless listed after the 4th ingredient. Hypoallergenic, fragrance free is preferred. Examples of preferred lotions include Vaseline Intensive Care Intensive Rescue (white bottle), Aveeno baby, Alpha Yee, Olay Quench Sensitive Skin (fragrance free). The pink/purple color of your healed skin will fade over time but could take 4-12 months to return to normal. Tima happens because of the thinness of the upper layers of the healed skin and the new blood vessels that are forming just under your skin. Usually skin that heals within two weeks will not leave a permanent scar. Keep healed areas protected from extreme temperatures and sun for the next 6-12 months. During the cold weather months wear extra layers of clothing over the healed skin, for example a hat, scarf, gloves, long sleeved shirts, long pants, socks and shoes. In the summer months, wear an SPF30 or higher sunscreen and light clothing to cover new skin. Reapply sunscreen several times a day while outside and remember to wear a hat if your face or ears were burned. Healed skin is very susceptible to scrapes and cuts, continue to protect the area from being bumped or rubbed since scrapes or friction blisters may occur for up to 6-12 months. documented in this encounter [facility] 01-22-2022 History of Presen t illness Narrative [facility] OUTPATIENT HEALED WOUND VISIT 01/22/2022 Date Wound Started: 01/11/22, PBD#: 11 Type of Wound: scald from hot hydraulic fluid at work Location(s): LUE and face, 2.75% TBSA, 0% full thickness Depth(s): partial Grafted: No. The patient's burn is fully reepithelialized. Pain controlled. Some pruritis treated with lotion. Has been back at work since last week and doing well. Using sunscreen and a wide brim hat when outdoors PE: Healed skin to LUE, and face. L ear has some small scattered open areas that are very limited. No signs of infection. Full ROM. During this visit we discussed: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
[2025-05-17] MEDS: 0.9% Normal Saline (1000mL) 1,000 ML 999 ML IV (21:21)
[2025-05-17 21:22] LABS: Anion Gap 15 (5-15); BUN 12 mg/dL (4-19); BUN/Creat Ratio 13.0 RATIO (10-20); Calcium,Total 9.4 mg/dL (7.6-11.0); Carbon Dioxide 21.2 mmol/L (21.0-32.0); Chloride 102 mmol/L (98-108); Estimated Creatinine Clearance 134.28 ml/min (50-250); Glucose 135 mg/dL (70-99); Potassium 3.4 mmol/L (3.3-5.1)
[2025-05-17 21:52] VITALS: BP 139/89; PULSE 76; RESP 16; O2SAT 97
[2025-05-17 22:27] VITALS: BP 141/99; PULSE 84; RESP 18; TEMP 36.6; O2SAT 100
--- NOTE | 2025-05-17 23:42 | EDS_ITS ---
HPI History of Present Illness Chief Complaint: General Illness Informant: patient Narrative Narrative: Very pleasant 40-year-old male presenting to the emergency room with the chief complaint of dehydration and muscle spasms. Patient states that yesterday had some diarrhea was not feeling very well today. He states he had a couple bottles of water this morning and a Sprite. He went out deer hunting this afternoon. He states he did urinate before getting into his stand and stated that it did not seem rather concentrated. After hunting he needed to drag the deer out and clean it and he states that he was physically exhausted. By the time he got home he was having cramps in his hands paresthesias in his face. He states he feels exhausted and believes he is dehydrated. No reported fevers. No known kidney issues. He takes lisinopril. [facility] Medical History Irregular heart beat COVID-19 Wears partial dentures Alcohol use Non-smoker Cardiology follow-up encounter Hypertension Home Medications ?Medication ?Instructions ?Recorded ?Last Taken ?Type lisinopril 10 mg tablet 10 mg PO DAILY 07/31/2107/10 05:20 History Allergy/AdvReac Type Severity Reaction Status Date / Time No Known Allergies Allergy Verified 05/17/25 19:52 Surgical History Hx of right knee surgery Social History Smoking Status: Never smoker ROS ROS ED ROS Narrative Generalized weakness Constitutional Constitutional ED: Denies chills, fever(s) or weight loss Eyes Eyes: Denies change in vision or diplopia ENT ENT ED: Reports other Details: Increased thirst ; Denies ear pain, rhinorrhea or sore throat Cardiovascular Cardiovascular: Denies chest pain, orthopnea, palpitations or racing heartbeat Respiratory/Chest Respiratory/Chest: Denies cough, dyspnea or orthopnea Gastrointestinal Gastrointestinal: Reports diarrhea; Denies abdominal pain, nausea or vomiting Genitourinary Genitourinary ED: Denies dysuria, hematuria or urinary frequency Musculoskeletal Musculoskeletal: Reports other Details: Muscle spasms ; Denies arthralgias or myalgias Integumentary Denies abscess or rash Neurologic Neurologic: Reports paresthesias; Denies headache(s) Psychiatric Psychiatric: Denies anxiety, depression, suicidal ideation or suicidal thoughts Endocrine Endocrinology: Denies polydipsia, polyphagia or polyuria Allergic/Immunologic Allergic/Immunologic ED: Denies mouth swelling, tongue swelling or urticaria EXAM Physical Exam Const Vital Signs: 05/17/25 19:53 05/17/25 19:53 05/17/25 21:52 Temperature 97.9 F Temperature Source Oral Pulse Rate 86 76 Respiratory Rate 17 16 Respiratory Effort Normal Respiratory Pattern Normal Blood Pressure 139/95 H 139/89 H Blood Pressure Mean 109 105 Pulse Ox 98 97 Oxygen Delivery Method Room Air Room Air 05/17/25 22:27 Temperature 97.8 F Temperature Source Pulse Rate 84 Respiratory Rate 18 Respiratory Effort Respiratory Pattern Blood Pressure 141/99 H Blood Pressure Mean 113 Pulse Ox 100 Oxygen Delivery Method Positive well nourished and well developed General Appearance ED: well developed HEENT Reports normocephalic, head/scalp atraumatic and moist mucous membranes Eyes PERRL and EOMs intact bilaterally Neck no lymphadenopathy, supple and no JVD Resp normal respiratory effort and clear to auscultation bilaterally Cardio regular rate, regular rhythm and no murmurs GI normal to inspection, nondistended, normoactive bowel sounds and non-tender Palpation: soft Back/Spine no CVA tenderness and normal ROM Extremity normal to inspection General Extremety ED: Negative for edema General Extremity: Negative for edema Neuro oriented x3, CN's II-XII intact bilaterally and no sensory deficits noted Sensorium / Orientation: alert Motor Exam: strength 5/5 throughout Psych mental status grossly normal Mood & Affect: Negative for depressed or tearful Skin no rashes or lesions noted and no wounds MDM MDM MDM Narrative Medical decision making narrative: Differential diagnosis includes but not limited to electrolyte abnormalities metabolic acidosis/alkalosis dehydration acute kidney injury hypoglycemia Patient's BMP shows a sodium 138 potassium 3.4 CO2 21.2 anion gap of 15 BUN of 12 creatinine 0.94 glucose 135 and a calcium of 9.4. Patient received 2 L of IV fluids. He was reassessed and is doing better. He feels the urge to urinate. No further spasms or paresthesias. At this point patient be discharged home. History & Record Review Discussion w/independent historian: Patient Lab Data Attestation: I reviewed the patient's lab results. Labs: Laboratory Results - last 24 hr 05/17/25 19:55 Sodium 138 Potassium 3.4 Chloride 102 Carbon Dioxide 21.2 Anion Gap 15 BUN 12 Creatinine 0.94 Estim Creat Clear Calc 134.28 Est GFR (MDRD) Non-Af 107 BUN/Creatinine Ratio 13.0 Glucose 135 H Calcium 9.4 EKG Initial EKG: Attestation: I personally reviewed and interpreted this EKG as follows: Comments: Normal sinus rhythm ventricular rate of 86 bpm Discharge Plan Triage Chief Complaint: General Illness ED Provider: Romeo Shultz Dx/Rx/DC Orders Clinical Impression: Acute dehydration Instructions: Dehydration Prescriptions: No Action lisinopril 10 mg Tablet 10 mg PO DAILY Primary Care Provider: Daniel Avilez Referrals: Daniel Avilez MD [Primary Care Provider, Family Practice] - As Needed Print Language: Burkinan Disposition Disposition: Home, Self Care Discharge Date/Time: 05/17/25 22:30
== END 2025-05-17 22:30 | disposition home or self-care (01) ==
PROVIDERS: Emergency Provider Emergency Medicine; PCP Family Medicine; Visit Provider Emergency Medicine
DX: E86.0 Dehydration (principal); I10 Essential (primary) hypertension; Z79.899 Other long term (current) drug therapy
CPT/HCPCS: 80048; 93005; 96360; 96361; 99285; A4216